=== PATIENT | male | born 1940 | race Two or more races ===

== ENCOUNTER 2020-01-26 08:47 | Inpatient (IN) | payer MEDICARE, MEDICAID ==
[~2020-01-26] VITALS: Ht 172.7 cm; Wt 83.2 kg
[2020-01-26 09:23] LABS: ABG BASE EXCESS -7.9 mmol/L (-2.0-3.0); ABG CARBOXYHEMOGLOBIN 1.8 % (0.0-1.5); ABG HCO3 19.3 mmol/L (22.0-26.0); ABG METHEMOGLOBIN 0.1 % (0.0-1.5); ABG OXYGEN CONTENT 19.4 mL/dL (15.0-23.0); ABG OXYGEN SATURATION 94.3 % (95.0-98.0); ABG OXYHEMOGLOBIN 92.5 % (94.0-100.0); ABG PCO2 28 mmHg (35-45); ABG PH 7.399 (7.35-7.450); ABG TOTAL HEMOGLOBIN 14.9 G/dL (12.0-18.0); SITE, BLOOD GAS LFT RADIAL; SOURCE, BLOOD GAS ARTERIAL; TEMPERATURE, FAHRENHEIT, BG 98.6 FAHREN (96.0-98.6)
[2020-01-26 09:24] LABS: O2 DEVICE,BLOOD GAS NON REBREATHER (ROOM AIR)
[2020-01-26 09:38] LABS: BASOPHILS % (AUTO) 0.3 % (0.0-2.0); EOSINOPHILS % (AUTO) 0 % (1.0-6.0); HEMATOCRIT 43.8 % (41-53); HEMOGLOBIN 14.2 g/dL (13.5-17.5); LYMPHOCYTES # (AUTO) 0.6 K/uL (1.0-4.8); LYMPHOCYTES % (AUTO) 2.5 % (22.0-44.0); MEAN CORPUSCULAR HEMOGLOBIN 27.6 pg (26.0-34.0); MEAN CORPUSCULAR HGB CONC 32.4 G/dL (31.0-37.0); MEAN CORPUSCULAR VOLUME 85 fL (80-100); MONOCYTES # (AUTO) 1.6 K/uL (0.1-1.0); MONOCYTES % (AUTO) 6.8 % (2.0-9.0); NEUTROPHILS # (AUTO) 20.9 K/uL (1.8-7.7); PLATELET COUNT (AUTO) 323 K/uL (150-450); RED BLOOD CELL COUNT(AUTO) 5.14 MIL/uL (4.50-5.90); RED CELL DISTRIBUTION WIDTH 14.5 % (11.5-14.5)
[2020-01-26 09:43] LABS: NEUTROPHILS % (AUTO) 90.4 % (40.0-70.0)
[2020-01-26 09:52] LABS: ANION GAP 17 mmol/L (8-16); CALCIUM, TOTAL 9.2 mg/dL (8.8-10.5); CARBON DIOXIDE 21 mmol/L (22-29); CHLORIDE 101 mmol/L (98-107); CREATININE 3.46 mg/dL (0.60-1.30); GLOMERULAR FILTR. RATE CALC 17 mL/min (>60); GLUCOSE,RANDOM 211 mg/dL (70-110); POTASSIUM 4.3 mmol/L (3.5-5.1); SODIUM SERUM 139 mmol/L (136-145); UREA NITROGEN, BLOOD 62 mg/dL (7-18)
[2020-01-26 09:57] LABS: D-DIMER 2.24 mg/L FEU (0.00-0.50); INR 1.1 (0.9-1.1); PROTHROMBIN TIME 11.5 SEC (9.4-11.6)
[2020-01-26] MEDS ORDERED: CefTRIAXone 1 GM/DEXTROSE 50 ML IV ONE (10:00)
[2020-01-26] MEDS ORDERED: AZITHROMYCIN 500 MG/NS 250 ML IV ONE (10:00)
[2020-01-26 10:02] LABS: LACTIC ACID 5.1 mmol/L (0.4-2.0)
[2020-01-26] MEDS ORDERED: ACETAMINOPHEN 325 MG TABLET PO PRN ×2 (10:30→18:15)
[2020-01-26] MEDS ORDERED: ONDANSETRON HCL 4 MG/2 ML VIAL IVP PRN ×2 (10:30→18:15)
[2020-01-26 10:33] LABS: ALANINE AMINOTRANSFERASE 36 U/L (12-78); ALBUMIN 2.5 g/dL (3.4-5.0); ALKALINE PHOSPHATASE 136 U/L (46-116); ASPARTATE AMINOTRANSFERASE 58 U/L (15-37); BILIRUBIN,TOTAL 7.3 mg/dL (0.1-1.0); CREATINE KINASE, TOTAL ONLY 78 U/L (39-308); FERRITIN 2615 ng/mL (26-388); LACTATE DEHYDROGENASE 435 U/L (85-227)
[2020-01-26 10:49] LABS: ERYTHROCYTE SEDIMENTATION RATE 68 MM/HR (0-15)
[2020-01-26] MEDS ORDERED: LORazepam 2 MG/ML VIAL IVP ONE (11:30)
[2020-01-26] MEDS ORDERED: FUROSEMIDE 40 MG/4 ML VIAL IVP ONE (12:15)
[2020-01-26 12:41] LABS: ABG A-A DIFF O2 625.7 mmHg (10-20.0); ABG BASE EXCESS -5.6 mmol/L (-2.0-3.0); ABG CARBOXYHEMOGLOBIN 1.2 % (0.0-1.5); ABG HCO3 20.2 mmol/L (22.0-26.0); ABG METHEMOGLOBIN 0.2 % (0.0-1.5); ABG OXYGEN CONTENT 17.7 mL/dL (15.0-23.0); ABG PCO2 36 mmHg (35-45); ABG PH 7.362 (7.35-7.450); ABG TOTAL HEMOGLOBIN 15.2 G/dL (12.0-18.0); PO2, ARTERIAL BG 51.9 mmHg (71.0-79.0); SOURCE, BLOOD GAS ARTERIAL; TEMPERATURE, FAHRENHEIT, BG 98.4 FAHREN (96.0-98.6)
[2020-01-26 14:53] LABS: ABG OXYGEN SATURATION 84.2 % (95.0-98.0); O2 DEVICE,BLOOD GAS NON REBREATHER (ROOM AIR); SITE, BLOOD GAS RT RADIAL
[2020-01-26] MEDS: DEXMEDETOMIDINE HCL 200 MCG in SODIUM CHLORIDE 0.9% 48 ML IV PRN ×2 (15:12→19:54)
[2020-01-26] MEDS ORDERED: HEPARIN SODIUM,PORCINE 1,000 UNITS/ML VIAL ONE (16:50)
[2020-01-26] MEDS ORDERED: ALBUMIN HUMAN 25%-12.5GM/50ML IV BOTTLE ONE (16:50)
[2020-01-26 18:15] LABS: BASOPHILS % (AUTO) 0.1 % (0.0-2.0); EOSINOPHILS % (AUTO) 0.1 % (1.0-6.0); HEMATOCRIT 40.3 % (41-53); HEMOGLOBIN 13.3 g/dL (13.5-17.5); LYMPHOCYTES # (AUTO) 0.4 K/uL (1.0-4.8); MEAN CORPUSCULAR HEMOGLOBIN 27.8 pg (26.0-34.0); MEAN CORPUSCULAR VOLUME 84 fL (80-100); MONOCYTES # (AUTO) 1.4 K/uL (0.1-1.0); MONOCYTES % (AUTO) 6.9 % (2.0-9.0); PLATELET COUNT (AUTO) 268 K/uL (150-450); RED BLOOD CELL COUNT(AUTO) 4.79 MIL/uL (4.50-5.90); RED CELL DISTRIBUTION WIDTH 14.5 % (11.5-14.5)
[2020-01-26] MEDS ORDERED: BISACODYL 10 MG RECTAL RECTAL SUPPOSITORY PR PRN (18:15)
[2020-01-26] MEDS ORDERED: IPRATROPIUM BROMIDE 0.5 MG/2.5 ML NEB SOLUTION NEB PRN (18:15)
[2020-01-26] MEDS ORDERED: HYDROCODONE/ACETAMINOPHEN 5-325 MG TABLET PO PRN (18:15)
[2020-01-26] MEDS ORDERED: ZOLPIDEM TARTRATE 5 MG TABLET PO PRN (18:15)
[2020-01-26] MEDS ORDERED: ALBUTEROL SULFATE 2.5 MG/0.5 ML NEB SOLUTION NEB PRN (18:15)
[2020-01-26] MEDS ORDERED: MAGNESIUM HYDROXIDE SUSPENSION 30 ML UDCUP PO PRN (18:15)
[2020-01-26 18:16] LABS: NEUTROPHILS % (AUTO) 90.9 % (40.0-70.0)
[2020-01-26 18:47] LABS: CALCIUM, TOTAL 8.7 mg/dL (8.8-10.5); CREATININE 3.24 mg/dL (0.60-1.30)
[2020-01-26] MEDS ORDERED: HEPARIN SODIUM 25000 UNITS/D5W 250 ML IV PRN (18:49)
[2020-01-26 18:57] LABS: D-DIMER 2.87 mg/L FEU (0.00-0.50)
[2020-01-26] MEDS ORDERED: HEPARIN SODIUM,PORCINE 5,000 UNITS/ML VIAL IVP PRN ×3 (19:00→19:30)
[2020-01-26 19:01] LABS: PLATELET MORPHOLOGY COMMENT LARGE PLTS PRESENT
[2020-01-26 19:07] LABS: INR 1.1 (0.9-1.1); PROTHROMBIN TIME 11.5 SEC (9.4-11.6)
[2020-01-26 19:20] LABS: ALBUMIN 2.1 g/dL (3.4-5.0); BILIRUBIN,TOTAL 6.1 mg/dL (0.1-1.0); THYROID STIMULATING HORMONE 0.42 uIU/mL (0.36-3.74); TOTAL PROTEIN, SERUM 6.1 g/dL (6.4-8.2)
[2020-01-26 19:29] LABS: C-REACTIVE PROTEIN QUANT 26.59 mg/dL (0.00-0.30)
[2020-01-26] MEDS ORDERED: HEPARIN SODIUM,PORCINE 5,000 UNITS/ML VIAL IVP ONE (19:30)
[2020-01-26] MEDS ORDERED: SODIUM CHLORIDE 0.9% 1,000 ML ONE (20:55)
[2020-01-26] MEDS ORDERED: NOREPINEPHRINE 4 MG/D5%-WATER 250 ML IV ONE (20:55)
[2020-01-26] MEDS ORDERED: PROPOFOL 1000 MG/ISO-OSM 100 ML IV ONE (20:56)
[2020-01-26] MEDS: DOCUSATE SODIUM 100 MG CAPSULE PO SCH (21:00)
[2020-01-26] MEDS: NOREPINEPHRINE 4 MG/D5%-WATER 250 ML IV PRN (21:59)
[2020-01-26] MEDS ORDERED: VANCOMYCIN HCL 1 GM/D5% WATER 200 ML IV PRN (22:30)
[2020-01-26] MEDS: HEPARIN SODIUM 25000 UNITS/D5W 250 ML IV PRN (22:45)
[2020-01-26] MEDS ORDERED: VANCOMYCIN HCL 1.5 GM in DEXTROSE 5%-WATER 250 ML IV ONE (23:00)
[2020-01-27] VITALS (10 sets, daily range): BP systolic 99–170; BP diastolic 32–82
[2020-01-27] MEDS ORDERED: HEPARIN SODIUM,PORCINE 5,000 UNITS/ML VIAL SQ SCH
[2020-01-27 01:15] LABS: ABG A-A DIFF O2 453.8 mmHg (10-20.0); ABG CARBOXYHEMOGLOBIN 0.5 % (0.0-1.5); ABG HCO3 20.2 mmol/L (22.0-26.0); ABG METHEMOGLOBIN 0.2 % (0.0-1.5); ABG OXYGEN CONTENT 19.2 mL/dL (15.0-23.0); ABG OXYGEN SATURATION 99.1 % (95.0-98.0); ABG OXYHEMOGLOBIN 98.4 % (94.0-100.0); ABG PCO2 35 mmHg (35-45); ABG PH 7.361 (7.35-7.450); ABG TOTAL HEMOGLOBIN 13.5 G/dL (12.0-18.0); PO2, ARTERIAL BG 225.9 mmHg (71.0-79.0); SOURCE, BLOOD GAS ARTERIAL; TEMPERATURE, FAHRENHEIT, BG 97.4 FAHREN (96.0-98.6)
[2020-01-27 01:16] LABS: O2 DEVICE,BLOOD GAS VENTILATOR (ROOM AIR); PEEP,BG 10 cm H2O; SITE, BLOOD GAS ARTERIAL LINE; VT, ABG 500 ml
[2020-01-27] MEDS ORDERED: SODIUM CHLORIDE 0.9% 250 ML IV ONE (01:23)
[2020-01-27] MEDS ORDERED: DOPamine HCL 200 MG/D5%-WATER 250 ML IV PRN (01:37)
[2020-01-27 05:30] LABS: HEMATOCRIT 37.8 % (41-53); HEMOGLOBIN 12.6 g/dL (13.5-17.5); MEAN CORPUSCULAR HEMOGLOBIN 28.2 pg (26.0-34.0); MEAN CORPUSCULAR HGB CONC 33.2 G/dL (31.0-37.0); MEAN CORPUSCULAR VOLUME 85 fL (80-100); PLATELET COUNT (AUTO) 266 K/uL (150-450); RED BLOOD CELL COUNT(AUTO) 4.46 MIL/uL (4.50-5.90); RED CELL DISTRIBUTION WIDTH 14.6 % (11.5-14.5)
[2020-01-27 05:52] LABS: D-DIMER 8.29 mg/L FEU (0.00-0.50)
[2020-01-27 06:14] LABS: CREATININE,URINE RANDOM 82.6 mg/dL (30.0-125.0)
[2020-01-27 06:28] LABS: ALBUMIN 1.9 g/dL (3.4-5.0); BILIRUBIN,TOTAL 5.8 mg/dL (0.1-1.0); CALCIUM, TOTAL 8.3 mg/dL (8.8-10.5); CREATININE 3.36 mg/dL (0.60-1.30); MAGNESIUM 2.6 mg/dL (1.80-2.40); PHOSPHORUS 5.5 mg/dL (2.5-4.9); POTASSIUM 3.7 mmol/L (3.5-5.1); TOTAL PROTEIN, SERUM 5.9 g/dL (6.4-8.2)
[2020-01-27] MEDS ORDERED: DOPamine HCL 800 MG/D5%-WATER 250 ML IV PRN (06:42)
[2020-01-27 06:48] LABS: BAND NEUTROPHILS % (MANUAL) 5 % (0-5); LYMPHOCYTES % (MANUAL) 4 % (22-44); METAMYELOCYTES % 3 % (0-0); MONOCYTES % (MANUAL) 4 % (2-9); MYELOCYTES % 1 % (0-0); SEGMENTED NEUTROPHILS % 83 % (40-70)
[2020-01-27 07:03] LABS: C-REACTIVE PROTEIN QUANT 27.46 mg/dL (0.00-0.30)
[2020-01-27 07:18] LABS: GLUCOSE,POINT OF CARE 211 MG/DL (70-110)
[2020-01-27] MEDS: PROPOFOL 1000 MG/ISO-OSM 100 ML IV PRN ×2 (07:19→14:13)
[2020-01-27] MEDS: MORPHINE SULFATE 2 MG/ML SYRINGE IVP PRN ×2 (07:20→18:36)
[2020-01-27] MEDS: DOCUSATE SODIUM 100 MG CAPSULE PO SCH ×2 (08:20→09:30)
[2020-01-27] MEDS: AZITHROMYCIN 500 MG/NS 250 ML IV SCH (10:22)
[2020-01-27] MEDS: CefTRIAXone 1 GM/DEXTROSE 50 ML IV SCH (10:22)
[2020-01-27] MEDS ORDERED: DEXTROSE 50%-WATER 25 GM/50 ML SYRINGE IVP PRN (12:15)
[2020-01-27 13:34] LABS: APPEARANCE,URINE CLOUDY (CLEAR); GLUCOSE, URINE (UA) NEGATIVE (NEGATIVE); KETONES,URINE NEGATIVE (NEGATIVE); LEUKOCYTE ESTERASE ,URINE LARGE (NEGATIVE); NITRATE,URINE NEGATIVE (NEGATIVE); OCCULT BLOOD,URINE LARGE (NEGATIVE); PROTEIN,URINE POS 1+ (NEGATIVE)
[2020-01-27 13:39] LABS: BILIRUBIN,URINE PRELIM. POSITIVE (NEGATIVE)
[2020-01-27 13:41] LABS: BACTERIA,URINE Moderate /HPF (None Seen); SQUAMOUS EPITHELIAL CELL,UR Few /LPF (None Seen)
[2020-01-27] MEDS: INSULIN LISPRO 100 UNITS/ML SQ PRN (14:57)
[2020-01-27] MEDS: HEPARIN SODIUM,PORCINE 5,000 UNITS/ML VIAL IVP PRN (17:30)
[2020-01-28] VITALS (13 sets, daily range): BP systolic 100–163; BP diastolic 32–59
[2020-01-28] MEDS: INSULIN LISPRO 100 UNITS/ML SQ PRN ×2 (00:35→12:30)
[2020-01-28] MEDS: HEPARIN SODIUM,PORCINE 5,000 UNITS/ML VIAL IVP PRN (01:11)
[2020-01-28] MEDS: PROPOFOL 1000 MG/ISO-OSM 100 ML IV PRN ×4 (01:13→14:30)
[2020-01-28 05:02] LABS: GLUCOSE,POINT OF CARE 132 MG/DL (70-110)
[2020-01-28 06:17] LABS: HEMATOCRIT 36.4 % (41-53); HEMOGLOBIN 12.7 g/dL (13.5-17.5); MEAN CORPUSCULAR HGB CONC 34.8 G/dL (31.0-37.0); MEAN CORPUSCULAR VOLUME 83 fL (80-100); PLATELET COUNT (AUTO) 309 K/uL (150-450); RED BLOOD CELL COUNT(AUTO) 4.37 MIL/uL (4.50-5.90); RED CELL DISTRIBUTION WIDTH 14.4 % (11.5-14.5)
[2020-01-28 06:29] LABS: ALBUMIN 1.7 g/dL (3.4-5.0); MAGNESIUM 2.6 mg/dL (1.80-2.40); POTASSIUM 3.7 mmol/L (3.5-5.1)
[2020-01-28 06:45] LABS: D-DIMER 3.64 mg/L FEU (0.00-0.50)
[2020-01-28 06:51] LABS: BAND NEUTROPHILS % (MANUAL) 5 % (0-5); LYMPHOCYTES % (MANUAL) 6 % (22-44); METAMYELOCYTES % 2 % (0-0); MONOCYTES % (MANUAL) 5 % (2-9); MYELOCYTES % 1 % (0-0); SEGMENTED NEUTROPHILS % 81 % (40-70)
[2020-01-28 06:57] LABS: PHOSPHORUS 6.3 mg/dL (2.5-4.9)
[2020-01-28 07:11] LABS: HEMOGLOBIN A1C 6.4 % (3.8-5.6)
[2020-01-28 07:11] LABS: GLUCOSE,POINT OF CARE 153 MG/DL (70-110)
[2020-01-28 07:51] LABS: C-REACTIVE PROTEIN QUANT 22.49 mg/dL (0.00-0.30); CALCIUM, TOTAL 7.7 mg/dL (8.8-10.5); CREATININE 3.45 mg/dL (0.60-1.30); THYROID STIMULATING HORMONE 1.63 uIU/mL (0.36-3.74); TOTAL PROTEIN, SERUM 5.8 g/dL (6.4-8.2); VANCOMYCIN,RANDOM 13.9 mcg/mL (25.0-50.0)
[2020-01-28] MEDS ORDERED: VANCOMYCIN HCL 1 GM/D5% WATER 200 ML IV ONE (08:00)
[2020-01-28 08:07] LABS: ABG A-A DIFF O2 224.9 mmHg (10-20.0); ABG BASE EXCESS -5.8 mmol/L (-2.0-3.0); ABG CARBOXYHEMOGLOBIN 0.3 % (0.0-1.5); ABG HCO3 20.2 mmol/L (22.0-26.0); ABG METHEMOGLOBIN 0.2 % (0.0-1.5); ABG OXYGEN CONTENT 18.2 mL/dL (15.0-23.0); ABG OXYGEN SATURATION 96.7 % (95.0-98.0); ABG OXYHEMOGLOBIN 96.2 % (94.0-100.0); ABG PCO2 36 mmHg (35-45); ABG PH 7.354 (7.35-7.450); ABG TOTAL HEMOGLOBIN 13.4 G/dL (12.0-18.0); PO2, ARTERIAL BG 91.1 mmHg (71.0-79.0); SOURCE, BLOOD GAS ARTERIAL; TEMPERATURE, FAHRENHEIT, BG 98.3 FAHREN (96.0-98.6)
[2020-01-28 08:09] LABS: SITE, BLOOD GAS ARTERIAL LINE
[2020-01-28 08:10] LABS: O2 DEVICE,BLOOD GAS VENTILATOR (ROOM AIR); PEEP,BG 8 cm H2O; SPONTANEOUS VT, BG 500 ml; VT, ABG 500 ml
[2020-01-28 08:37] LABS: GLUCOMETER DEV NAME(LOC) 4E.2; GLUCOSE,POINT OF CARE 144 MG/DL (70-110)
[2020-01-28 08:38] LABS: GLUCOMETER DEV NAME(LOC) 4E.2; GLUCOSE,POINT OF CARE 159 MG/DL (70-110)
[2020-01-28] MEDS ORDERED: SODIUM CHLORIDE 0.9% 250 ML IV ONE (08:40)
[2020-01-28] MEDS: DOCUSATE SODIUM 100 MG CAPSULE PO SCH ×2 (08:44→21:48)
[2020-01-28] MEDS: CefTRIAXone 1 GM/DEXTROSE 50 ML IV SCH (09:49)
[2020-01-28] MEDS: AZITHROMYCIN 500 MG/NS 250 ML IV SCH (11:30)
[2020-01-28 12:18] LABS: GLUCOMETER DEV NAME(LOC) 4E.2; GLUCOSE,POINT OF CARE 174 MG/DL (70-110)
[2020-01-28] MEDS ORDERED: ETOMIDATE 2 MG/ML 10 ML VIAL IVP ONE (16:28)
[2020-01-28] MEDS: ASPIRIN 81 MG EC TABLET PO SCH (16:38)
[2020-01-28 19:08] LABS: GLUCOSE,POINT OF CARE 148 MG/DL (70-110)
[2020-01-29] MEDS: INSULIN LISPRO 100 UNITS/ML SQ PRN ×5 (02:44→23:30)
[2020-01-29 05:33] LABS: GLUCOSE,POINT OF CARE 148 MG/DL (70-110)
[2020-01-29 05:45] LABS: HEMATOCRIT 35.6 % (41-53); HEMOGLOBIN 12.2 g/dL (13.5-17.5); MEAN CORPUSCULAR HEMOGLOBIN 28.3 pg (26.0-34.0); MEAN CORPUSCULAR HGB CONC 34.3 G/dL (31.0-37.0); MEAN CORPUSCULAR VOLUME 83 fL (80-100); PLATELET COUNT (AUTO) 320 K/uL (150-450); RED BLOOD CELL COUNT(AUTO) 4.31 MIL/uL (4.50-5.90); RED CELL DISTRIBUTION WIDTH 14.2 % (11.5-14.5)
[2020-01-29 06:15] LABS: D-DIMER 2.64 mg/L FEU (0.00-0.50)
[2020-01-29 06:50] LABS: ALBUMIN 1.6 g/dL (3.4-5.0); BILIRUBIN,TOTAL 7.2 mg/dL (0.1-1.0); C-REACTIVE PROTEIN QUANT 21.39 mg/dL (0.00-0.30); CALCIUM, TOTAL 7.8 mg/dL (8.8-10.5); CREATININE 3.29 mg/dL (0.60-1.30); MAGNESIUM 2.5 mg/dL (1.80-2.40); PHOSPHORUS 5.8 mg/dL (2.5-4.9); POTASSIUM 3.4 mmol/L (3.5-5.1); TOTAL PROTEIN, SERUM 5.9 g/dL (6.4-8.2)
[2020-01-29 07:07] LABS: BAND NEUTROPHILS % (MANUAL) 6 % (0-5); LYMPHOCYTES % (MANUAL) 5 % (22-44); METAMYELOCYTES % 3 % (0-0); MONOCYTES % (MANUAL) 8 % (2-9); SEGMENTED NEUTROPHILS % 78 % (40-70)
[2020-01-29] MEDS: HEPARIN SODIUM,PORCINE 5,000 UNITS/ML VIAL IVP PRN (08:01)
[2020-01-29] MEDS: HEPARIN SODIUM 25000 UNITS/D5W 250 ML IV PRN ×2 (08:04→23:21)
[2020-01-29] MEDS: ASPIRIN 81 MG EC TABLET PO SCH (08:05)
[2020-01-29] MEDS: DOCUSATE SODIUM 100 MG CAPSULE PO SCH ×2 (08:05→21:00)
[2020-01-29] MEDS: MORPHINE SULFATE 2 MG/ML SYRINGE IVP PRN (08:06)
[2020-01-29] MEDS: PROPOFOL 1000 MG/ISO-OSM 100 ML IV PRN ×4 (08:07→23:23)
[2020-01-29 09:12] LABS: ABG TOTAL HEMOGLOBIN 12.6 G/dL (12.0-18.0); SOURCE, BLOOD GAS ARTERIAL; TEMPERATURE, FAHRENHEIT, BG 98.6 FAHREN (96.0-98.6)
[2020-01-29 09:15] LABS: ABG A-A DIFF O2 292.3 mmHg (10-20.0); ABG BASE EXCESS -4.3 mmol/L (-2.0-3.0); ABG CARBOXYHEMOGLOBIN 0.3 % (0.0-1.5); ABG HCO3 21.2 mmol/L (22.0-26.0); ABG METHEMOGLOBIN 0.4 % (0.0-1.5); ABG OXYGEN CONTENT 17.1 mL/dL (15.0-23.0); ABG OXYGEN SATURATION 96.7 % (95.0-98.0); ABG PCO2 40 mmHg (35-45); ABG PH 7.348 (7.35-7.450); PO2, ARTERIAL BG 91.8 mmHg (71.0-79.0)
[2020-01-29 09:18] LABS: O2 DEVICE,BLOOD GAS VENTILATOR (ROOM AIR); SITE, BLOOD GAS ARTERIAL LINE; VT, ABG 500 ml
[2020-01-29 09:19] LABS: PEEP,BG 5 cm H2O
[2020-01-29] MEDS: CefTRIAXone 1 GM/DEXTROSE 50 ML IV SCH (11:07)
[2020-01-29] MEDS ORDERED: SODIUM CHLORIDE 0.9% 250 ML IV ONE (11:17)
[2020-01-29 11:27] LABS: GLUCOSE,POINT OF CARE 158 MG/DL (70-110)
[2020-01-29] MEDS ORDERED: *CLINICAL-LEVOFLOXACIN IVPB DOSING CLINICAL ONE (12:45)
[2020-01-29] MEDS ORDERED: LEVOFLOXACIN 750 MG/D5% WATER 150 ML IV ONE (13:00)
[2020-01-29 17:52] LABS: GLUCOMETER DEV NAME(LOC) 4E.2; GLUCOSE,POINT OF CARE 158 MG/DL (70-110)
[2020-01-29 20:00] VITALS: BP 146/34
[2020-01-30] VITALS: BP 182/37
[2020-01-30 01:00] LABS: GLUCOMETER DEV NAME(LOC) 4E.2; GLUCOSE,POINT OF CARE 141 MG/DL (70-110)
[2020-01-30] MEDS: PROPOFOL 1000 MG/ISO-OSM 100 ML IV PRN ×6 (03:25→23:19)
[2020-01-30 04:00] VITALS: BP 161/44
[2020-01-30 05:51] LABS: HEMATOCRIT 34.6 % (41-53); HEMOGLOBIN 12.1 g/dL (13.5-17.5); MEAN CORPUSCULAR HEMOGLOBIN 28.5 pg (26.0-34.0); MEAN CORPUSCULAR HGB CONC 34.9 G/dL (31.0-37.0); MEAN CORPUSCULAR VOLUME 82 fL (80-100); PLATELET COUNT (AUTO) 323 K/uL (150-450); RED BLOOD CELL COUNT(AUTO) 4.23 MIL/uL (4.50-5.90); RED CELL DISTRIBUTION WIDTH 14.7 % (11.5-14.5)
[2020-01-30 06:19] LABS: GLUCOSE,POINT OF CARE 162 MG/DL (70-110)
[2020-01-30 06:33] LABS: D-DIMER 2.19 mg/L FEU (0.00-0.50)
[2020-01-30 06:54] LABS: ALBUMIN 1.4 g/dL (3.4-5.0); BILIRUBIN,TOTAL 6.7 mg/dL (0.1-1.0); CALCIUM, TOTAL 7.9 mg/dL (8.8-10.5); CREATININE 3.68 mg/dL (0.60-1.30); TOTAL PROTEIN, SERUM 6.2 g/dL (6.4-8.2)
[2020-01-30 07:03] LABS: GLUCOMETER DEV NAME(LOC) 4E.2; GLUCOSE,POINT OF CARE 140 MG/DL (70-110)
[2020-01-30 07:32] LABS: C-REACTIVE PROTEIN QUANT 28.09 mg/dL (0.00-0.30)
[2020-01-30 08:35] LABS: ABG BASE EXCESS -3.8 mmol/L (-2.0-3.0); ABG CARBOXYHEMOGLOBIN 0.3 % (0.0-1.5); ABG HCO3 21.4 mmol/L (22.0-26.0); ABG METHEMOGLOBIN 0.3 % (0.0-1.5); ABG OXYGEN CONTENT 16.3 mL/dL (15.0-23.0); ABG OXYGEN SATURATION 95.3 % (95.0-98.0); ABG OXYHEMOGLOBIN 94.7 % (94.0-100.0); ABG PCO2 44 mmHg (35-45); ABG PH 7.326 (7.35-7.450); ABG TOTAL HEMOGLOBIN 12.2 G/dL (12.0-18.0); PO2, ARTERIAL BG 80.8 mmHg (71.0-79.0); SOURCE, BLOOD GAS ARTERIAL; TEMPERATURE, FAHRENHEIT, BG 98.6 FAHREN (96.0-98.6)
[2020-01-30] MEDS: DOCUSATE SODIUM 100 MG CAPSULE PO SCH ×2 (08:37→19:56)
[2020-01-30] MEDS: ASPIRIN 81 MG EC TABLET PO SCH (08:37)
[2020-01-30 08:41] LABS: O2 DEVICE,BLOOD GAS VENTILATOR (ROOM AIR); SITE, BLOOD GAS ARTERIAL LINE; VT, ABG 500 ml
[2020-01-30 08:42] LABS: PEEP,BG 5 cm H2O
[2020-01-30] MEDS ORDERED: VANCOMYCIN HCL 1 GM/D5% WATER 200 ML IV ONE (10:00)
[2020-01-30 10:49] LABS: BAND NEUTROPHILS % (MANUAL) 7 % (0-5); LYMPHOCYTES % (MANUAL) 6 % (22-44); METAMYELOCYTES % 1 % (0-0); MONOCYTES % (MANUAL) 2 % (2-9); SEGMENTED NEUTROPHILS % 84 % (40-70)
[2020-01-30] MEDS: CefTRIAXone 1 GM/DEXTROSE 50 ML IV SCH (10:50)
[2020-01-30] MEDS: METOPROLOL SUCCINATE 25 MG ER TABLET PO SCH (10:52)
[2020-01-30] MEDS: INSULIN LISPRO 100 UNITS/ML SQ PRN ×3 (11:57→23:43)
[2020-01-30] MEDS ORDERED: CefTRIAXone 1 GM/DEXTROSE 50 ML IV ONE (12:00)
[2020-01-30] MEDS: HEPARIN SODIUM 25000 UNITS/D5W 250 ML IV PRN (12:11)
[2020-01-30] MEDS ORDERED: HYDROXYCHLOROQUINE SULFATE 200 MG TABLET PO ONE (15:15)
[2020-01-30 17:31] LABS: GLUCOSE,POINT OF CARE 172 MG/DL (70-110)
[2020-01-30 17:54] LABS: GLUCOSE,POINT OF CARE 150 MG/DL (70-110)
[2020-01-30] MEDS: ZINC SULFATE 220 MG CAPSULE PO SCH (19:56)
[2020-01-30 20:00] VITALS: BP 152/40
[2020-01-30] MEDS ORDERED: SODIUM CHLORIDE 0.9% 250 ML IV ONE (22:48)
[2020-01-31] VITALS (12 sets, daily range): BP systolic 107–144; BP diastolic 28–59
[2020-01-31] MEDS: PROPOFOL 1000 MG/ISO-OSM 100 ML IV PRN ×4 (04:51→20:16)
[2020-01-31] MEDS: INSULIN LISPRO 100 UNITS/ML SQ PRN ×3 (05:20→16:28)
[2020-01-31 05:47] LABS: GLUCOMETER DEV NAME(LOC) 4E.2; GLUCOSE,POINT OF CARE 149 MG/DL (70-110)
[2020-01-31] MEDS ORDERED: HYDROXYCHLOROQUINE SULFATE 200 MG TABLET PO ONE (06:00)
[2020-01-31 06:17] LABS: GLUCOSE,POINT OF CARE 152 MG/DL (70-110)
[2020-01-31 06:24] LABS: HEMATOCRIT 33.4 % (41-53); HEMOGLOBIN 11.5 g/dL (13.5-17.5); MEAN CORPUSCULAR HEMOGLOBIN 28.1 pg (26.0-34.0); MEAN CORPUSCULAR HGB CONC 34.3 G/dL (31.0-37.0); MEAN CORPUSCULAR VOLUME 82 fL (80-100); PLATELET COUNT (AUTO) 351 K/uL (150-450); RED BLOOD CELL COUNT(AUTO) 4.08 MIL/uL (4.50-5.90); RED CELL DISTRIBUTION WIDTH 14.5 % (11.5-14.5)
[2020-01-31 07:25] LABS: ALBUMIN 1.3 g/dL (3.4-5.0); BILIRUBIN,TOTAL 7.2 mg/dL (0.1-1.0); CALCIUM, TOTAL 8.1 mg/dL (8.8-10.5); CREATININE 4.46 mg/dL (0.60-1.30); POTASSIUM 4.2 mmol/L (3.5-5.1); TOTAL PROTEIN, SERUM 6.4 g/dL (6.4-8.2)
[2020-01-31 07:41] LABS: BAND NEUTROPHILS % (MANUAL) 7 % (0-5); LYMPHOCYTES % (MANUAL) 5 % (22-44); METAMYELOCYTES % 1 % (0-0); MONOCYTES % (MANUAL) 4 % (2-9); SEGMENTED NEUTROPHILS % 83 % (40-70)
[2020-01-31 07:51] LABS: C-REACTIVE PROTEIN QUANT 31.03 mg/dL (0.00-0.30)
[2020-01-31] MEDS: ASPIRIN 81 MG EC TABLET PO SCH (08:14)
[2020-01-31] MEDS: ZINC SULFATE 220 MG CAPSULE PO SCH ×2 (08:14→21:00)
[2020-01-31] MEDS: DOCUSATE SODIUM 100 MG CAPSULE PO SCH ×2 (08:15→21:00)
[2020-01-31] MEDS: METOPROLOL SUCCINATE 25 MG ER TABLET PO SCH (08:15)
[2020-01-31 10:39] LABS: CALCIUM, TOTAL 7.4 mg/dL (8.8-10.5); CREATININE 4.54 mg/dL (0.60-1.30); POTASSIUM 4.6 mmol/L (3.5-5.1)
[2020-01-31] MEDS ORDERED: HEPARIN SODIUM,PORCINE 1,000 UNITS/ML VIAL ONE (11:24)
[2020-01-31] MEDS: LEVOFLOXACIN 500 MG/D5% WATER 100 ML IV SCH (12:15)
[2020-01-31] MEDS: CefTRIAXone SODIUM 2 GM in DEXTROSE 5%-WATER 50 ML IV SCH (12:15)
[2020-01-31] MEDS: HEPARIN SODIUM,PORCINE 5,000 UNITS/ML VIAL IVP PRN (12:45)
[2020-01-31] MEDS: HEPARIN SODIUM 25000 UNITS/D5W 250 ML IV PRN ×2 (12:46→16:10)
[2020-01-31 13:30] LABS: GLUCOSE,POINT OF CARE 167 MG/DL (70-110)
[2020-01-31] MEDS: MetroNIDAZOLE 500 MG/NACL 100 ML IV SCH (16:09)
[2020-01-31] MEDS ORDERED: SODIUM CHLORIDE 0.9% 100 ML ONE (16:25)
[2020-01-31 17:07] LABS: ABG CARBOXYHEMOGLOBIN 0.3 % (0.0-1.5); ABG METHEMOGLOBIN 0.3 % (0.0-1.5); SOURCE, BLOOD GAS ARTERIAL; TEMPERATURE, FAHRENHEIT, BG 98.6 FAHREN (96.0-98.6)
[2020-01-31 17:10] LABS: ABG A-A DIFF O2 419.9 mmHg (10-20.0); ABG BASE EXCESS -3.2 mmol/L (-2.0-3.0); ABG HCO3 21.6 mmol/L (22.0-26.0); ABG OXYGEN CONTENT 14.1 mL/dL (15.0-23.0); ABG OXYGEN SATURATION 96.6 % (95.0-98.0); ABG PCO2 51 mmHg (35-45); ABG PH 7.284 (7.35-7.450); ABG TOTAL HEMOGLOBIN 10.3 G/dL (12.0-18.0); PO2, ARTERIAL BG 97.4 mmHg (71.0-79.0)
[2020-01-31 17:11] LABS: O2 DEVICE,BLOOD GAS VENTILATOR (ROOM AIR); PEEP,BG 5 cm H2O; SITE, BLOOD GAS A-LINE; VT, ABG 500 ml
[2020-01-31 18:08] LABS: GLUCOMETER DEV NAME(LOC) 4E.2; GLUCOSE,POINT OF CARE 159 MG/DL (70-110)
[2020-02-01] VITALS (8 sets, daily range): BP systolic 96–123; BP diastolic 30–53
[2020-02-01] MEDS: MetroNIDAZOLE 500 MG/NACL 100 ML IV SCH ×4 (00:30→23:06)
[2020-02-01] MEDS: PROPOFOL 1000 MG/ISO-OSM 100 ML IV PRN ×4 (00:31→18:49)
[2020-02-01] MEDS: INSULIN LISPRO 100 UNITS/ML SQ PRN ×3 (00:32→13:00)
[2020-02-01] MEDS ORDERED: CISATRACURIUM BESYLATE 20 MG in DEXTROSE 5%-WATER 98 ML IV PRN (02:00)
[2020-02-01] MEDS: NOREPINEPHRINE 4 MG/D5%-WATER 250 ML IV PRN ×3 (04:00→14:55)
[2020-02-01] MEDS: CISATRACURIUM BESYLATE 50 MG in DEXTROSE 5%-WATER 245 ML IV PRN ×4 (04:02→19:27)
[2020-02-01] MEDS ORDERED: SODIUM CHLORIDE 0.9% 2,000 ML ONE (04:32)
[2020-02-01 04:34] LABS: HEMATOCRIT 28.1 % (41-53); HEMOGLOBIN 9.4 g/dL (13.5-17.5); MEAN CORPUSCULAR HEMOGLOBIN 27.5 pg (26.0-34.0); MEAN CORPUSCULAR HGB CONC 33.4 G/dL (31.0-37.0); MEAN CORPUSCULAR VOLUME 82 fL (80-100); PLATELET COUNT (AUTO) 356 K/uL (150-450); RED BLOOD CELL COUNT(AUTO) 3.41 MIL/uL (4.50-5.90); RED CELL DISTRIBUTION WIDTH 15.1 % (11.5-14.5)
[2020-02-01 04:40] LABS: D-DIMER 1.87 mg/L FEU (0.00-0.50)
[2020-02-01 05:03] LABS: C-REACTIVE PROTEIN QUANT 28.92 mg/dL (0.00-0.30)
[2020-02-01 05:28] LABS: POTASSIUM 5.4 mmol/L (3.5-5.1)
[2020-02-01 05:29] LABS: BILIRUBIN,TOTAL 7.4 mg/dL (0.1-1.0); CALCIUM, TOTAL 7.4 mg/dL (8.8-10.5); CREATININE 3.97 mg/dL (0.60-1.30); MAGNESIUM 2.4 mg/dL (1.80-2.40)
[2020-02-01 05:30] LABS: ALBUMIN 1.4 g/dL (3.4-5.0); TOTAL PROTEIN, SERUM 6.2 g/dL (6.4-8.2)
[2020-02-01 05:35] LABS: BAND NEUTROPHILS % (MANUAL) 5 % (0-5); EOSINOPHILS % (MANUAL) 1 % (1-6); LYMPHOCYTES % (MANUAL) 5 % (22-44); METAMYELOCYTES % 1 % (0-0); MONOCYTES % (MANUAL) 6 % (2-9); SEGMENTED NEUTROPHILS % 82 % (40-70)
[2020-02-01] MEDS: HEPARIN SODIUM 25000 UNITS/D5W 250 ML IV PRN (06:38)
[2020-02-01 08:36] LABS: GLUCOMETER DEV NAME(LOC) 4E.2; GLUCOSE,POINT OF CARE 159 MG/DL (70-110)
[2020-02-01] MEDS: METOPROLOL SUCCINATE 25 MG ER TABLET PO SCH (09:29)
[2020-02-01] MEDS: ASPIRIN 81 MG EC TABLET PO SCH (09:29)
[2020-02-01] MEDS: DOCUSATE SODIUM 100 MG CAPSULE PO SCH ×2 (09:29→23:00)
[2020-02-01] MEDS: ZINC SULFATE 220 MG CAPSULE PO SCH ×2 (09:30→23:00)
[2020-02-01] MEDS: CefTRIAXone SODIUM 2 GM in DEXTROSE 5%-WATER 50 ML IV SCH (12:59)
[2020-02-01] MEDS: DEXAMETHASONE SOD PHOS 4 MG/ML VIAL IVP SCH ×3 (14:55→23:07)
[2020-02-01] MEDS ORDERED: DAPTOMYCIN 450 MG in SODIUM CHLORIDE 0.9% 50 ML IV SCH (16:00)
[2020-02-01 17:11] LABS: BILIRUBIN,DIRECT 6.2 mg/dL (0.00-0.20)
[2020-02-01 17:47] LABS: GLUCOSE,POINT OF CARE 153 MG/DL (70-110)
[2020-02-01] MEDS ORDERED: SODIUM CHLORIDE 0.9% 250 ML IV ONE (19:26)
[2020-02-01 19:32] LABS: GLUCOSE,POINT OF CARE 161 MG/DL (70-110)
[2020-02-01 19:32] LABS: GLUCOSE,POINT OF CARE 138 MG/DL (70-110)
[2020-02-02] VITALS: BP 141/35
[2020-02-02] MEDS ORDERED: SODIUM CHLORIDE 0.9% 250 ML IV ONE (00:53)
[2020-02-02] MEDS: PROPOFOL 1000 MG/ISO-OSM 100 ML IV PRN ×4 (01:00→21:11)
[2020-02-02] MEDS: HEPARIN SODIUM 25000 UNITS/D5W 250 ML IV PRN ×2 (01:01→12:06)
[2020-02-02] MEDS: INSULIN LISPRO 100 UNITS/ML SQ PRN ×2 (01:03→06:10)
[2020-02-02] MEDS: CISATRACURIUM BESYLATE 50 MG in DEXTROSE 5%-WATER 245 ML IV PRN (03:12)
[2020-02-02 04:00] VITALS: BP 115/33
[2020-02-02 05:56] LABS: HEMATOCRIT 26.2 % (41-53); HEMOGLOBIN 8.7 g/dL (13.5-17.5); MEAN CORPUSCULAR HEMOGLOBIN 27.5 pg (26.0-34.0); MEAN CORPUSCULAR HGB CONC 33.1 G/dL (31.0-37.0); MEAN CORPUSCULAR VOLUME 83 fL (80-100); PLATELET COUNT (AUTO) 356 K/uL (150-450); RED BLOOD CELL COUNT(AUTO) 3.16 MIL/uL (4.50-5.90); RED CELL DISTRIBUTION WIDTH 15.1 % (11.5-14.5)
[2020-02-02] MEDS: DEXAMETHASONE SOD PHOS 4 MG/ML VIAL IVP SCH ×3 (06:10→17:25)
[2020-02-02 06:19] LABS: D-DIMER 1.5 mg/L FEU (0.00-0.50)
[2020-02-02 06:47] LABS: ALBUMIN 1.3 g/dL (3.4-5.0); BILIRUBIN,TOTAL 6.5 mg/dL (0.1-1.0); C-REACTIVE PROTEIN QUANT 23.88 mg/dL (0.00-0.30); CREATININE 3.42 mg/dL (0.60-1.30); MAGNESIUM 2.2 mg/dL (1.80-2.40); POTASSIUM 5.8 mmol/L (3.5-5.1)
[2020-02-02 06:59] LABS: GLUCOMETER DEV NAME(LOC) 4E.2; GLUCOSE,POINT OF CARE 179 MG/DL (70-110)
[2020-02-02 07:01] LABS: GLUCOSE,POINT OF CARE 173 MG/DL (70-110)
[2020-02-02 07:03] LABS: BAND NEUTROPHILS % (MANUAL) 7 % (0-5); LYMPHOCYTES % (MANUAL) 10 % (22-44); METAMYELOCYTES % 1 % (0-0); MONOCYTES % (MANUAL) 5 % (2-9); PLATELET MORPHOLOGY COMMENT LARGE PLTS PRESENT; SEGMENTED NEUTROPHILS % 77 % (40-70); WBC MORPHOLOGY TOXIC GRANULATION
[2020-02-02 07:06] LABS: PHOSPHORUS 10.2 mg/dL (2.5-4.9)
[2020-02-02] MEDS: NOREPINEPHRINE 4 MG/D5%-WATER 250 ML IV PRN ×3 (07:19→17:25)
[2020-02-02 08:00] VITALS: BP 115/42
[2020-02-02 08:19] LABS: ABG CARBOXYHEMOGLOBIN 0.3 % (0.0-1.5); SOURCE, BLOOD GAS ARTERIAL; TEMPERATURE, FAHRENHEIT, BG 98.6 FAHREN (96.0-98.6)
[2020-02-02 08:22] LABS: ABG A-A DIFF O2 340.2 mmHg (10-20.0); ABG BASE EXCESS -9.3 mmol/L (-2.0-3.0); ABG HCO3 17.1 mmol/L (22.0-26.0); ABG METHEMOGLOBIN 0.6 % (0.0-1.5); ABG OXYGEN CONTENT 12.9 mL/dL (15.0-23.0); ABG OXYGEN SATURATION 96.5 % (95.0-98.0); ABG OXYHEMOGLOBIN 95.6 % (94.0-100.0); ABG PCO2 55 mmHg (35-45); ABG TOTAL HEMOGLOBIN 9.5 G/dL (12.0-18.0); PO2, ARTERIAL BG 99.5 mmHg (71.0-79.0)
[2020-02-02 08:24] LABS: ABG PH 7.162 (7.35-7.450); O2 DEVICE,BLOOD GAS VENTILATOR (ROOM AIR); SITE, BLOOD GAS ARTERIAL LINE; VT, ABG 500 ml
[2020-02-02 08:25] LABS: PEEP,BG 12 cm H2O
[2020-02-02] MEDS: MetroNIDAZOLE 500 MG/NACL 100 ML IV SCH ×2 (08:29→15:38)
[2020-02-02] MEDS: ASPIRIN 81 MG EC TABLET PO SCH (08:30)
[2020-02-02] MEDS: DOCUSATE SODIUM 100 MG CAPSULE PO SCH ×2 (08:30→21:07)
[2020-02-02] MEDS: METOPROLOL SUCCINATE 25 MG ER TABLET PO SCH (08:30)
[2020-02-02] MEDS: ZINC SULFATE 220 MG CAPSULE PO SCH ×2 (08:30→21:06)
[2020-02-02] MEDS ORDERED: SODIUM BICARBONATE [ADULT] 8.4% 50 MEQ/50 ML SYRINGE IVP ONE (08:45)
[2020-02-02 09:15] LABS: LEGIONELLA PNEUMO AG URINE Negative (Negative); ORGANISM ID Not indicated.; S PNEUMO SOURCE Urine; STREP PNEUMONIAE AG URINE Negative (Negative); STREP.PNEUMO BODY FLUID CULT. Not indicated.
[2020-02-02] MEDS: CefTRIAXone SODIUM 2 GM in DEXTROSE 5%-WATER 50 ML IV SCH (11:04)
[2020-02-02] MEDS: LEVOFLOXACIN 500 MG/D5% WATER 100 ML IV SCH (11:05)
[2020-02-02] MEDS ORDERED: POTASSIUM CHLORIDE 15 MEQ in NXSTAGE RFP-402 K0/CA3 5,000 ML IRRIG PRN (11:30)
[2020-02-02] MEDS ORDERED: SODIUM CHLORIDE 0.9% 2,000 ML ONE (11:42)
[2020-02-02 12:00] VITALS: BP 113/43
[2020-02-02 13:33] LABS: GLUCOSE,POINT OF CARE 178 MG/DL (70-110)
[2020-02-02 16:00] VITALS: BP 124/54
[2020-02-02 18:21] LABS: GLUCOMETER DEV NAME(LOC) 4E.2; GLUCOSE,POINT OF CARE 157 MG/DL (70-110)
[2020-02-02 20:00] VITALS: BP 155/34
[2020-02-03] VITALS (8 sets, daily range): BP systolic 115–164; BP diastolic 29–65
[2020-02-03] MEDS: MetroNIDAZOLE 500 MG/NACL 100 ML IV SCH ×3 (01:02→16:38)
[2020-02-03] MEDS: INSULIN LISPRO 100 UNITS/ML SQ PRN ×3 (01:03→11:42)
[2020-02-03] MEDS: DEXAMETHASONE SOD PHOS 4 MG/ML VIAL IVP SCH ×4 (01:05→17:29)
[2020-02-03] MEDS: PROPOFOL 1000 MG/ISO-OSM 100 ML IV PRN ×6 (01:19→21:57)
[2020-02-03 05:17] LABS: HEMATOCRIT 23.5 % (41-53)
[2020-02-03 05:24] LABS: HEMOGLOBIN 8.1 g/dL (13.5-17.5); MEAN CORPUSCULAR HEMOGLOBIN 28.1 pg (26.0-34.0); MEAN CORPUSCULAR HGB CONC 34.4 G/dL (31.0-37.0); MEAN CORPUSCULAR VOLUME 82 fL (80-100); PLATELET COUNT (AUTO) 364 K/uL (150-450); RED BLOOD CELL COUNT(AUTO) 2.88 MIL/uL (4.50-5.90); RED CELL DISTRIBUTION WIDTH 14.9 % (11.5-14.5)
[2020-02-03 05:31] LABS: D-DIMER 1.33 mg/L FEU (0.00-0.50)
[2020-02-03 06:04] LABS: ALBUMIN 1.2 g/dL (3.4-5.0); C-REACTIVE PROTEIN QUANT 12.59 mg/dL (0.00-0.30); CALCIUM, TOTAL 6.3 mg/dL (8.8-10.5); CREATININE 3.84 mg/dL (0.60-1.30); POTASSIUM 5.5 mmol/L (3.5-5.1); TOTAL PROTEIN, SERUM 5.5 g/dL (6.4-8.2)
[2020-02-03 06:45] LABS: GLUCOMETER DEV NAME(LOC) 4E.2; GLUCOSE,POINT OF CARE 194 MG/DL (70-110)
[2020-02-03 06:48] LABS: GLUCOSE,POINT OF CARE 153 MG/DL (70-110)
[2020-02-03] MEDS: ZINC SULFATE 220 MG CAPSULE PO SCH ×2 (08:37→21:55)
[2020-02-03] MEDS: ASPIRIN 81 MG EC TABLET PO SCH (08:37)
[2020-02-03] MEDS: DOCUSATE SODIUM 100 MG CAPSULE PO SCH ×2 (08:37→22:02)
[2020-02-03] MEDS: METOPROLOL SUCCINATE 25 MG ER TABLET PO SCH (08:38)
[2020-02-03 08:51] LABS: BAND NEUTROPHILS % (MANUAL) 3 % (0-5); LYMPHOCYTES % (MANUAL) 3 % (22-44); METAMYELOCYTES % 1 % (0-0); MONOCYTES % (MANUAL) 1 % (2-9); MYELOCYTES % 1 % (0-0); REACTIVE LYMPHOCYTES 1 % (0-0); SEGMENTED NEUTROPHILS % 90 % (40-70)
[2020-02-03] MEDS: PANTOPRAZOLE SODIUM 40 MG/VIAL IVP SCH (09:45)
[2020-02-03] MEDS: VITAMIN B COMP/VIT C/FOLIC ACID CAPSULE PO SCH (09:45)
[2020-02-03] MEDS: HEPARIN SODIUM 25000 UNITS/D5W 250 ML IV PRN (09:45)
[2020-02-03] MEDS ORDERED: SODIUM CHLORIDE 0.9% IV SCH (11:00)
[2020-02-03] MEDS ORDERED: DAPTOMYCIN IV SCH (11:00)
[2020-02-03] MEDS ORDERED: SODIUM CHLORIDE 0.9% 2,000 ML ONE (11:06)
[2020-02-03] MEDS: CefTRIAXone SODIUM 2 GM in DEXTROSE 5%-WATER 50 ML IV SCH (11:43)
[2020-02-03 12:06] LABS: ABG A-A DIFF O2 207.9 mmHg (10-20.0); ABG BASE EXCESS -10.3 mmol/L (-2.0-3.0); ABG CARBOXYHEMOGLOBIN 0.8 % (0.0-1.5); ABG HCO3 16.6 mmol/L (22.0-26.0); ABG METHEMOGLOBIN 0.1 % (0.0-1.5); ABG OXYGEN CONTENT 10.8 mL/dL (15.0-23.0); ABG OXYGEN SATURATION 92.1 % (95.0-98.0); ABG OXYHEMOGLOBIN 91.3 % (94.0-100.0); ABG PCO2 38 mmHg (35-45); ABG PH 7.261 (7.35-7.450); ABG TOTAL HEMOGLOBIN 8.3 G/dL (12.0-18.0); SOURCE, BLOOD GAS ARTERIAL; TEMPERATURE, FAHRENHEIT, BG 97.8 FAHREN (96.0-98.6)
[2020-02-03 12:11] LABS: O2 DEVICE,BLOOD GAS VENTILATOR (ROOM AIR); SITE, BLOOD GAS ARTERIAL LINE
[2020-02-03 12:12] LABS: PEEP,BG 8 cm H2O; VT, ABG 500 ml
[2020-02-03 12:37] LABS: GLUCOMETER DEV NAME(LOC) 4E.2; GLUCOSE,POINT OF CARE 149 MG/DL (70-110)
[2020-02-03] MEDS ORDERED: ALBUMIN HUMAN 25%-12.5GM/50ML IV BOTTLE IV ONE (18:10)
[2020-02-03] MEDS ORDERED: HEPARIN SODIUM,PORCINE 1,000 UNITS/ML VIAL IVP ONE (18:10)
[2020-02-03 19:16] LABS: GLUCOSE,POINT OF CARE 128 MG/DL (70-110)
[2020-02-04] VITALS (8 sets, daily range): BP systolic 110–188; BP diastolic 34–70
[2020-02-04] MEDS: DEXAMETHASONE SOD PHOS 4 MG/ML VIAL IVP SCH ×5 (00:34→23:16)
[2020-02-04] MEDS: MetroNIDAZOLE 500 MG/NACL 100 ML IV SCH ×4 (00:34→23:16)
[2020-02-04] MEDS: INSULIN LISPRO 100 UNITS/ML SQ PRN ×4 (00:36→23:47)
[2020-02-04 00:41] LABS: GLUCOMETER DEV NAME(LOC) 4E.2; GLUCOSE,POINT OF CARE 156 MG/DL (70-110)
[2020-02-04] MEDS: PROPOFOL 1000 MG/ISO-OSM 100 ML IV PRN ×4 (01:33→22:10)
[2020-02-04 05:50] LABS: HEMATOCRIT 24.1 % (41-53); MEAN CORPUSCULAR HEMOGLOBIN 27.5 pg (26.0-34.0); MEAN CORPUSCULAR VOLUME 83 fL (80-100); PLATELET COUNT (AUTO) 384 K/uL (150-450); RED CELL DISTRIBUTION WIDTH 14.9 % (11.5-14.5)
[2020-02-04 06:49] LABS: ALBUMIN 1.4 g/dL (3.4-5.0); BILIRUBIN,TOTAL 3.9 mg/dL (0.1-1.0); C-REACTIVE PROTEIN QUANT 5.24 mg/dL (0.00-0.30); CALCIUM, TOTAL 6.9 mg/dL (8.8-10.5); CREATININE 2.12 mg/dL (0.60-1.30); POTASSIUM 3.9 mmol/L (3.5-5.1); TOTAL PROTEIN, SERUM 5.3 g/dL (6.4-8.2)
[2020-02-04 06:55] LABS: GLUCOSE,POINT OF CARE 163 MG/DL (70-110)
[2020-02-04] MEDS: ZINC SULFATE 220 MG CAPSULE PO SCH ×2 (08:14→20:17)
[2020-02-04] MEDS: VITAMIN B COMP/VIT C/FOLIC ACID CAPSULE PO SCH (08:14)
[2020-02-04] MEDS: PANTOPRAZOLE SODIUM 40 MG/VIAL IVP SCH (08:14)
[2020-02-04] MEDS: AMINO ACIDS/PROTEIN HYDROLYS 30 ML TUBE PO SCH ×3 (08:14→15:25)
[2020-02-04] MEDS: METOPROLOL SUCCINATE 25 MG ER TABLET PO SCH (08:14)
[2020-02-04] MEDS: ASPIRIN 81 MG EC TABLET PO SCH (08:15)
[2020-02-04] MEDS: DOCUSATE SODIUM 100 MG CAPSULE PO SCH ×2 (08:15→20:15)
[2020-02-04 08:34] LABS: ABG A-A DIFF O2 249.7 mmHg (10-20.0); ABG BASE EXCESS -7.8 mmol/L (-2.0-3.0); ABG CARBOXYHEMOGLOBIN 0.3 % (0.0-1.5); ABG HCO3 18.7 mmol/L (22.0-26.0); ABG METHEMOGLOBIN 0.3 % (0.0-1.5); ABG OXYGEN CONTENT 14.5 mL/dL (15.0-23.0); ABG OXYGEN SATURATION 90.7 % (95.0-98.0); ABG OXYHEMOGLOBIN 90.2 % (94.0-100.0); ABG PCO2 35 mmHg (35-45); ABG PH 7.334 (7.35-7.450); ABG TOTAL HEMOGLOBIN 11.4 G/dL (12.0-18.0); PO2, ARTERIAL BG 67.7 mmHg (71.0-79.0); SOURCE, BLOOD GAS ARTERIAL; TEMPERATURE, FAHRENHEIT, BG 98.6 FAHREN (96.0-98.6)
[2020-02-04 08:37] LABS: O2 DEVICE,BLOOD GAS VENTILATOR (ROOM AIR); SITE, BLOOD GAS ARTERIAL LINE
[2020-02-04 08:38] LABS: PEEP,BG 5 cm H2O; SPONTANEOUS VT, BG 705 ml; VT, ABG 500 ml
[2020-02-04 09:55] LABS: BAND NEUTROPHILS % (MANUAL) 4 % (0-5); LYMPHOCYTES % (MANUAL) 6 % (22-44); METAMYELOCYTES % 1 % (0-0); MONOCYTES % (MANUAL) 2 % (2-9); MYELOCYTES % 1 % (0-0); REACTIVE LYMPHOCYTES 1 % (0-0); SEGMENTED NEUTROPHILS % 85 % (40-70)
[2020-02-04 09:56] LABS: PLATELET MORPHOLOGY COMMENT LARGE PLTS PRESENT; WBC MORPHOLOGY TOXIC GRANULATION
[2020-02-04] MEDS: CefTRIAXone SODIUM 2 GM in DEXTROSE 5%-WATER 50 ML IV SCH (11:46)
[2020-02-04] MEDS: LEVOFLOXACIN 500 MG/D5% WATER 100 ML IV SCH (11:46)
[2020-02-04 12:22] LABS: GLUCOSE,POINT OF CARE 152 MG/DL (70-110)
[2020-02-04] MEDS: METOPROLOL TARTRATE 25 MG TABLET PO SCH ×2 (15:26→20:17)
[2020-02-04 17:50] LABS: GLUCOSE,POINT OF CARE 161 MG/DL (70-110)
[2020-02-04] MEDS ORDERED: HEPARIN SODIUM,PORCINE 1,000 UNITS/ML VIAL ONE (19:33)
[2020-02-05] VITALS: BP 124/57
[2020-02-05] MEDS ORDERED: SODIUM CHLORIDE 0.9% 250 ML IV ONE ×2 (02:08→20:17)
[2020-02-05] MEDS: PROPOFOL 1000 MG/ISO-OSM 100 ML IV PRN ×3 (03:25→21:59)
[2020-02-05 04:00] VITALS: BP 142/68
[2020-02-05 05:14] LABS: GLUCOSE,POINT OF CARE 146 MG/DL (70-110)
[2020-02-05] MEDS: DEXAMETHASONE SOD PHOS 4 MG/ML VIAL IVP SCH ×4 (05:15→23:20)
[2020-02-05] MEDS: INSULIN LISPRO 100 UNITS/ML SQ PRN ×4 (05:16→23:40)
[2020-02-05 05:42] LABS: HEMATOCRIT 24.2 % (41-53); HEMOGLOBIN 8.1 g/dL (13.5-17.5); MEAN CORPUSCULAR HEMOGLOBIN 28.3 pg (26.0-34.0); MEAN CORPUSCULAR HGB CONC 33.4 G/dL (31.0-37.0); MEAN CORPUSCULAR VOLUME 85 fL (80-100); PLATELET COUNT (AUTO) 461 K/uL (150-450); RED BLOOD CELL COUNT(AUTO) 2.85 MIL/uL (4.50-5.90); RED CELL DISTRIBUTION WIDTH 15.4 % (11.5-14.5)
[2020-02-05 06:37] LABS: ALBUMIN 1.5 g/dL (3.4-5.0); BILIRUBIN,TOTAL 2.5 mg/dL (0.1-1.0); C-REACTIVE PROTEIN QUANT 3.39 mg/dL (0.00-0.30); CALCIUM, TOTAL 6.6 mg/dL (8.8-10.5); CREATININE 3.45 mg/dL (0.60-1.30); POTASSIUM 4.3 mmol/L (3.5-5.1); TOTAL PROTEIN, SERUM 5.5 g/dL (6.4-8.2)
[2020-02-05] MEDS: MetroNIDAZOLE 500 MG/NACL 100 ML IV SCH ×3 (07:26→23:20)
[2020-02-05] MEDS: AMINO ACIDS/PROTEIN HYDROLYS 30 ML TUBE PO SCH ×3 (07:26→17:45)
[2020-02-05] MEDS: PANTOPRAZOLE SODIUM 40 MG/VIAL IVP SCH (07:26)
[2020-02-05] MEDS: ASPIRIN 81 MG EC TABLET PO SCH (07:26)
[2020-02-05] MEDS: VITAMIN B COMP/VIT C/FOLIC ACID CAPSULE PO SCH (07:26)
[2020-02-05] MEDS: DOCUSATE SODIUM 100 MG CAPSULE PO SCH ×2 (07:26→20:21)
[2020-02-05] MEDS: ZINC SULFATE 220 MG CAPSULE PO SCH ×2 (07:26→20:24)
[2020-02-05] MEDS: METOPROLOL TARTRATE 25 MG TABLET PO SCH ×3 (07:27→20:24)
[2020-02-05 07:40] LABS: GLUCOMETER DEV NAME(LOC) 4E.2; GLUCOSE,POINT OF CARE 156 MG/DL (70-110)
[2020-02-05 08:00] VITALS: BP 141/55
[2020-02-05 10:18] LABS: BAND NEUTROPHILS % (MANUAL) 13 % (0-5); LYMPHOCYTES % (MANUAL) 3 % (22-44); METAMYELOCYTES % 2 % (0-0); MONOCYTES % (MANUAL) 1 % (2-9); MYELOCYTES % 1 % (0-0); SEGMENTED NEUTROPHILS % 80 % (40-70)
[2020-02-05] MEDS: EPOETIN ALFA 10,000 UNITS/ML 2 ML VIAL SQ SCH (10:32)
[2020-02-05 10:41] LABS: ABG A-A DIFF O2 192.2 mmHg (10-20.0); ABG BASE EXCESS -11.9 mmol/L (-2.0-3.0); ABG CARBOXYHEMOGLOBIN 0.2 % (0.0-1.5); ABG HCO3 15.5 mmol/L (22.0-26.0); ABG METHEMOGLOBIN 0.2 % (0.0-1.5); ABG OXYGEN CONTENT 12.6 mL/dL (15.0-23.0); ABG OXYHEMOGLOBIN 93.6 % (94.0-100.0); ABG PCO2 40 mmHg (35-45); ABG PH 7.216 (7.35-7.450); ABG TOTAL HEMOGLOBIN 9.5 G/dL (12.0-18.0); O2 DEVICE,BLOOD GAS VENTILATOR (ROOM AIR); PO2, ARTERIAL BG 83.5 mmHg (71.0-79.0); SITE, BLOOD GAS ARTERIAL LINE; SOURCE, BLOOD GAS ARTERIAL; TEMPERATURE, FAHRENHEIT, BG 97.7 FAHREN (96.0-98.6); VT, ABG 500 ml
[2020-02-05 10:42] LABS: PEEP,BG 5 cm H2O
[2020-02-05] MEDS ORDERED: DAPTOMYCIN 450 MG in SODIUM CHLORIDE 0.9% 50 ML IV SCH (11:00)
[2020-02-05] MEDS: CefTRIAXone SODIUM 2 GM in DEXTROSE 5%-WATER 50 ML IV SCH (11:28)
[2020-02-05 12:00] VITALS: BP 151/65
[2020-02-05] MEDS: DEXMEDETOMIDINE HCL 200 MCG in SODIUM CHLORIDE 0.9% 48 ML IV PRN (12:46)
[2020-02-05 16:00] VITALS: BP 112/40
[2020-02-05] MEDS ORDERED: ADENOSINE 3 MG/ML 2 ML VIAL IVP ONE (16:15)
[2020-02-05] MEDS ORDERED: HEPARIN SODIUM,PORCINE 1,000 UNITS/ML VIAL ONE (17:29)
[2020-02-05 17:33] LABS: GLUCOSE,POINT OF CARE 165 MG/DL (70-110)
[2020-02-05] MEDS ORDERED: ADENOSINE 3 MG/ML 2 ML VIAL IVP PRN (18:30)
[2020-02-05 20:00] VITALS: BP 117/56
[2020-02-05 20:06] LABS: GLUCOSE,POINT OF CARE 158 MG/DL (70-110)
[2020-02-05] MEDS ORDERED: SODIUM CHLORIDE 0.9% 500 ML IV ONE (22:49)
[2020-02-06] VITALS: BP 106/55
[2020-02-06 00:17] LABS: GLUCOSE,POINT OF CARE 145 MG/DL (70-110)
[2020-02-06 01:55] LABS: APPEARANCE,URINE CLOUDY (CLEAR); BILIRUBIN,URINE PRELIM. POSITIVE (NEGATIVE); GLUCOSE, URINE (UA) NEGATIVE (NEGATIVE); KETONES,URINE NEGATIVE (NEGATIVE); LEUKOCYTE ESTERASE ,URINE SMALL (NEGATIVE); NITRATE,URINE NEGATIVE (NEGATIVE); OCCULT BLOOD,URINE LARGE (NEGATIVE); PROTEIN,URINE POS 1+ (NEGATIVE); UROBILINOGEN,URINE 0.2 mg/dL (<=1.0)
[2020-02-06 01:59] LABS: BACTERIA,URINE Few /HPF (None Seen); SQUAMOUS EPITHELIAL CELL,UR Few /LPF (None Seen)
[2020-02-06] MEDS: PROPOFOL 1000 MG/ISO-OSM 100 ML IV PRN ×2 (02:05→10:43)
[2020-02-06 04:00] VITALS: BP 101/66
[2020-02-06] MEDS: DEXAMETHASONE SOD PHOS 4 MG/ML VIAL IVP SCH ×3 (05:19→17:13)
[2020-02-06] MEDS: INSULIN LISPRO 100 UNITS/ML SQ PRN ×3 (05:20→18:21)
[2020-02-06 05:28] LABS: GLUCOSE,POINT OF CARE 169 MG/DL (70-110)
[2020-02-06 05:41] LABS: HEMATOCRIT 22.7 % (41-53); HEMOGLOBIN 7.9 g/dL (13.5-17.5); MEAN CORPUSCULAR HEMOGLOBIN 29.5 pg (26.0-34.0); MEAN CORPUSCULAR HGB CONC 34.7 G/dL (31.0-37.0); MEAN CORPUSCULAR VOLUME 85 fL (80-100); PLATELET COUNT (AUTO) 415 K/uL (150-450); RED BLOOD CELL COUNT(AUTO) 2.67 MIL/uL (4.50-5.90); RED CELL DISTRIBUTION WIDTH 15.5 % (11.5-14.5)
[2020-02-06 06:38] LABS: ALBUMIN 1.4 g/dL (3.4-5.0); BILIRUBIN,TOTAL 2.1 mg/dL (0.1-1.0); C-REACTIVE PROTEIN QUANT 4.37 mg/dL (0.00-0.30); CALCIUM, TOTAL 6.4 mg/dL (8.8-10.5); CREATININE 2.85 mg/dL (0.60-1.30); TOTAL PROTEIN, SERUM 5.1 g/dL (6.4-8.2)
[2020-02-06] MEDS: ADENOSINE 3 MG/ML 2 ML VIAL IVP PRN ×2 (06:49→14:46)
[2020-02-06 08:00] VITALS: BP 107/52
[2020-02-06] MEDS: VITAMIN B COMP/VIT C/FOLIC ACID CAPSULE PO SCH (08:01)
[2020-02-06] MEDS: PANTOPRAZOLE SODIUM 40 MG/VIAL IVP SCH (08:01)
[2020-02-06] MEDS: MetroNIDAZOLE 500 MG/NACL 100 ML IV SCH ×2 (08:01→15:36)
[2020-02-06] MEDS: ASPIRIN 81 MG EC TABLET PO SCH (08:01)
[2020-02-06] MEDS: DOCUSATE SODIUM 100 MG CAPSULE PO SCH ×2 (08:02→19:53)
[2020-02-06] MEDS: METOPROLOL TARTRATE 25 MG TABLET PO SCH ×3 (08:02→21:26)
[2020-02-06] MEDS: ZINC SULFATE 220 MG CAPSULE PO SCH ×2 (08:02→21:26)
[2020-02-06] MEDS: AMINO ACIDS/PROTEIN HYDROLYS 30 ML TUBE PO SCH ×3 (08:05→16:47)
[2020-02-06] MEDS ORDERED: ADENOSINE 3 MG/ML 2 ML VIAL IVP ONE (08:15)
[2020-02-06] MEDS ORDERED: CALCIUM GLUCONATE 2,000 MG in DEXTROSE 5%-WATER 50 ML IV ONE (08:45)
[2020-02-06 09:05] LABS: BAND NEUTROPHILS % (MANUAL) 13 % (0-5); EOSINOPHILS % (MANUAL) 1 % (1-6); LYMPHOCYTES % (MANUAL) 13 % (22-44); METAMYELOCYTES % 2 % (0-0); MONOCYTES % (MANUAL) 4 % (2-9); MYELOCYTES % 2 % (0-0); SEGMENTED NEUTROPHILS % 65 % (40-70)
[2020-02-06 09:07] LABS: CORRECTED WHITE BLOOD COUNT 37.9 K/uL (4.5-11.0)
[2020-02-06 09:10] LABS: WBC MORPHOLOGY SMUDGE CELLS PRESENT
[2020-02-06] MEDS: CALCITRIOL 0.25 MCG CAPSULE NG SCH (09:33)
[2020-02-06] MEDS: LEVOFLOXACIN 500 MG/D5% WATER 100 ML IV SCH (10:44)
[2020-02-06 12:00] VITALS: BP 97/38
[2020-02-06 12:43] LABS: ABG BASE EXCESS -6.1 mmol/L (-2.0-3.0); ABG CARBOXYHEMOGLOBIN 0.6 % (0.0-1.5); ABG HCO3 19.8 mmol/L (22.0-26.0); ABG METHEMOGLOBIN 0.3 % (0.0-1.5); ABG OXYGEN CONTENT 10.1 mL/dL (15.0-23.0); ABG OXYGEN SATURATION 94.9 % (95.0-98.0); ABG PCO2 37 mmHg (35-45); ABG PH 7.342 (7.35-7.450); ABG TOTAL HEMOGLOBIN 7.5 G/dL (12.0-18.0); O2 DEVICE,BLOOD GAS VENTILATOR (ROOM AIR); PO2, ARTERIAL BG 81.3 mmHg (71.0-79.0); SITE, BLOOD GAS ARTERIAL LINE; SOURCE, BLOOD GAS ARTERIAL; TEMPERATURE, FAHRENHEIT, BG 98.9 FAHREN (96.0-98.6); VT, ABG 500 ml
[2020-02-06 12:44] LABS: PEEP,BG 5 cm H2O
[2020-02-06] MEDS: CefTRIAXone SODIUM 2 GM in DEXTROSE 5%-WATER 50 ML IV SCH (13:14)
[2020-02-06] MEDS: MORPHINE SULFATE 2 MG/ML SYRINGE IVP PRN (14:41)
[2020-02-06 16:00] VITALS: BP 128/75
[2020-02-06 20:00] VITALS: BP 127/73
[2020-02-06] MEDS: DEXMEDETOMIDINE HCL 200 MCG in SODIUM CHLORIDE 0.9% 48 ML IV PRN (20:27)
[2020-02-06] MEDS ORDERED: SODIUM CHLORIDE 0.9% 500 ML IV ONE (23:48)
[2020-02-07] VITALS (8 sets, daily range): BP systolic 124–167; BP diastolic 52–65
[2020-02-07] MEDS: MetroNIDAZOLE 500 MG/NACL 100 ML IV SCH ×4 (00:02→23:42)
[2020-02-07] MEDS: DEXAMETHASONE SOD PHOS 4 MG/ML VIAL IVP SCH ×5 (00:02→23:42)
[2020-02-07] MEDS: INSULIN LISPRO 100 UNITS/ML SQ PRN ×5 (00:41→23:56)
[2020-02-07] MEDS: DEXMEDETOMIDINE HCL 200 MCG in SODIUM CHLORIDE 0.9% 48 ML IV PRN ×2 (03:27→08:36)
[2020-02-07 05:00] LABS: GLUCOSE,POINT OF CARE 150 MG/DL (70-110)
[2020-02-07 05:23] LABS: GLUCOMETER DEV NAME(LOC) 4E.2; GLUCOSE,POINT OF CARE 146 MG/DL (70-110)
[2020-02-07 05:23] LABS: GLUCOMETER DEV NAME(LOC) 4E.2; GLUCOSE,POINT OF CARE 145 MG/DL (70-110)
[2020-02-07 06:02] LABS: HEMOGLOBIN 7.6 g/dL (13.5-17.5); MEAN CORPUSCULAR HEMOGLOBIN 27.6 pg (26.0-34.0); MEAN CORPUSCULAR HGB CONC 31.7 G/dL (31.0-37.0); MEAN CORPUSCULAR VOLUME 87 fL (80-100); PLATELET COUNT (AUTO) 463 K/uL (150-450); RED BLOOD CELL COUNT(AUTO) 2.76 MIL/uL (4.50-5.90)
[2020-02-07] MEDS: MORPHINE SULFATE 2 MG/ML SYRINGE IVP PRN ×2 (06:39→08:37)
[2020-02-07 06:49] LABS: GLUCOSE,POINT OF CARE 153 MG/DL (70-110)
[2020-02-07 07:08] LABS: ALBUMIN 1.5 g/dL (3.4-5.0); BILIRUBIN,TOTAL 1.7 mg/dL (0.1-1.0); C-REACTIVE PROTEIN QUANT 5.3 mg/dL (0.00-0.30); CALCIUM, TOTAL 6.7 mg/dL (8.8-10.5); CREATININE 3.65 mg/dL (0.60-1.30); POTASSIUM 4.5 mmol/L (3.5-5.1); TOTAL PROTEIN, SERUM 5.4 g/dL (6.4-8.2)
[2020-02-07] MEDS: METOPROLOL TARTRATE 25 MG TABLET PO SCH ×3 (09:00→21:04)
[2020-02-07] MEDS: DOCUSATE SODIUM 100 MG CAPSULE PO SCH ×2 (09:00→20:02)
[2020-02-07] MEDS: AMINO ACIDS/PROTEIN HYDROLYS 30 ML TUBE PO SCH ×3 (09:21→17:37)
[2020-02-07] MEDS: VITAMIN B COMP/VIT C/FOLIC ACID CAPSULE PO SCH (09:21)
[2020-02-07] MEDS: ASPIRIN 81 MG EC TABLET PO SCH (09:21)
[2020-02-07] MEDS: PANTOPRAZOLE SODIUM 40 MG/VIAL IVP SCH (09:21)
[2020-02-07] MEDS: ZINC SULFATE 220 MG CAPSULE PO SCH ×2 (09:21→20:02)
[2020-02-07] MEDS: CALCITRIOL 0.25 MCG CAPSULE NG SCH (09:21)
[2020-02-07] MEDS: PROPOFOL 1000 MG/ISO-OSM 100 ML IV PRN ×2 (09:30→15:18)
[2020-02-07 09:36] LABS: BAND NEUTROPHILS % (MANUAL) 14 % (0-5); LYMPHOCYTES % (MANUAL) 15 % (22-44); METAMYELOCYTES % 2 % (0-0); MONOCYTES % (MANUAL) 3 % (2-9); MYELOCYTES % 2 % (0-0); SEGMENTED NEUTROPHILS % 64 % (40-70)
[2020-02-07 09:41] LABS: CORRECTED WHITE BLOOD COUNT 39.2 K/uL (4.5-11.0)
[2020-02-07 09:51] LABS: ABG A-A DIFF O2 253.7 mmHg (10-20.0); ABG BASE EXCESS -3.4 mmol/L (-2.0-3.0); ABG CARBOXYHEMOGLOBIN 0.3 % (0.0-1.5); ABG HCO3 21.2 mmol/L (22.0-26.0); ABG METHEMOGLOBIN 0.3 % (0.0-1.5); ABG OXYGEN SATURATION 89.4 % (95.0-98.0); ABG OXYHEMOGLOBIN 88.9 % (94.0-100.0); ABG PCO2 61 mmHg (35-45); ABG PH 7.222 (7.35-7.450); ABG TOTAL HEMOGLOBIN 9.5 G/dL (12.0-18.0); PO2, ARTERIAL BG 71.1 mmHg (71.0-79.0); SOURCE, BLOOD GAS ARTERIAL; TEMPERATURE, FAHRENHEIT, BG 98.8 FAHREN (96.0-98.6)
[2020-02-07 09:53] LABS: O2 DEVICE,BLOOD GAS VENTILATOR (ROOM AIR); PEEP,BG 5 cm H2O; SITE, BLOOD GAS ARTERIAL LINE; VT, ABG 500 ml
[2020-02-07 09:54] LABS: SPONTANEOUS VT, BG 487 ml
[2020-02-07] MEDS: NOREPINEPHRINE 4 MG/D5%-WATER 250 ML IV PRN ×2 (09:55→12:48)
[2020-02-07] MEDS: CefTRIAXone SODIUM 2 GM in DEXTROSE 5%-WATER 50 ML IV SCH (11:26)
[2020-02-07 12:46] LABS: APPEARANCE,URINE CLOUDY (CLEAR); BILIRUBIN,URINE NEGATIVE (NEGATIVE); GLUCOSE, URINE (UA) NEGATIVE (NEGATIVE); KETONES,URINE NEGATIVE (NEGATIVE); LEUKOCYTE ESTERASE ,URINE NEGATIVE (NEGATIVE); NITRATE,URINE NEGATIVE (NEGATIVE); OCCULT BLOOD,URINE MODERATE (NEGATIVE); PROTEIN,URINE TRACE (NEGATIVE); UROBILINOGEN,URINE 0.2 mg/dL (<=1.0)
[2020-02-07 12:57] LABS: BACTERIA,URINE None Seen /HPF (None Seen); SQUAMOUS EPITHELIAL CELL,UR Few /LPF (None Seen); WBC,URINE None Seen /HPF (0-5); YEAST,URINE Many /HPF (None Seen)
[2020-02-07 14:53] LABS: GLUCOMETER DEV NAME(LOC) 4E.2; GLUCOSE,POINT OF CARE 152 MG/DL (70-110)
[2020-02-07] MEDS: DAPTOMYCIN 450 MG in SODIUM CHLORIDE 0.9% 50 ML IV SCH (16:26)
[2020-02-07] MEDS ORDERED: HEPARIN SODIUM,PORCINE 1,000 UNITS/ML VIAL ONE (18:20)
[2020-02-07 20:02] LABS: GLUCOMETER DEV NAME(LOC) 4E.2; GLUCOSE,POINT OF CARE 181 MG/DL (70-110)
[2020-02-08] VITALS (9 sets, daily range): BP systolic 125–177; BP diastolic 51–84
[2020-02-08] MEDS: PROPOFOL 1000 MG/ISO-OSM 100 ML IV PRN ×4 (00:42→21:48)
[2020-02-08 05:35] LABS: GLUCOSE,POINT OF CARE 158 MG/DL (70-110)
[2020-02-08] MEDS: DEXAMETHASONE SOD PHOS 4 MG/ML VIAL IVP SCH ×3 (05:43→17:21)
[2020-02-08] MEDS: INSULIN LISPRO 100 UNITS/ML SQ PRN ×2 (05:44→18:52)
[2020-02-08 06:18] LABS: HEMATOCRIT 23.4 % (41-53); HEMOGLOBIN 7.6 g/dL (13.5-17.5); MEAN CORPUSCULAR HEMOGLOBIN 28.9 pg (26.0-34.0); MEAN CORPUSCULAR HGB CONC 32.4 G/dL (31.0-37.0); MEAN CORPUSCULAR VOLUME 89 fL (80-100); PLATELET COUNT (AUTO) 446 K/uL (150-450); RED BLOOD CELL COUNT(AUTO) 2.63 MIL/uL (4.50-5.90); RED CELL DISTRIBUTION WIDTH 16.1 % (11.5-14.5)
[2020-02-08 06:59] LABS: GLUCOSE,POINT OF CARE 171 MG/DL (70-110)
[2020-02-08 07:03] LABS: ALBUMIN 1.5 g/dL (3.4-5.0); BILIRUBIN,TOTAL 1.5 mg/dL (0.1-1.0); C-REACTIVE PROTEIN QUANT 3.19 mg/dL (0.00-0.30); CALCIUM, TOTAL 7.1 mg/dL (8.8-10.5); CREATININE 3.01 mg/dL (0.60-1.30); POTASSIUM 4.7 mmol/L (3.5-5.1); TOTAL PROTEIN, SERUM 5.2 g/dL (6.4-8.2)
[2020-02-08] MEDS: DOCUSATE SODIUM 100 MG CAPSULE PO SCH ×2 (08:08→21:00)
[2020-02-08] MEDS: MetroNIDAZOLE 500 MG/NACL 100 ML IV SCH ×2 (08:14→15:23)
[2020-02-08] MEDS: AMINO ACIDS/PROTEIN HYDROLYS 30 ML TUBE PO SCH ×3 (08:14→17:21)
[2020-02-08] MEDS: CALCITRIOL 0.25 MCG CAPSULE NG SCH (08:15)
[2020-02-08] MEDS: ASPIRIN 81 MG EC TABLET PO SCH (08:15)
[2020-02-08] MEDS: ZINC SULFATE 220 MG CAPSULE PO SCH ×2 (08:15→21:46)
[2020-02-08] MEDS: VITAMIN B COMP/VIT C/FOLIC ACID CAPSULE PO SCH (08:15)
[2020-02-08] MEDS: METOPROLOL TARTRATE 25 MG TABLET PO SCH ×3 (08:15→21:46)
[2020-02-08] MEDS: PANTOPRAZOLE SODIUM 40 MG/VIAL IVP SCH (08:15)
[2020-02-08] MEDS: EPOETIN ALFA 10,000 UNITS/ML 2 ML VIAL SQ SCH (08:17)
[2020-02-08 09:01] LABS: ABG A-A DIFF O2 181.6 mmHg (10-20.0); ABG BASE EXCESS -7.4 mmol/L (-2.0-3.0); ABG CARBOXYHEMOGLOBIN 0.6 % (0.0-1.5); ABG HCO3 18.9 mmol/L (22.0-26.0); ABG METHEMOGLOBIN 0.3 % (0.0-1.5); ABG OXYGEN CONTENT 12.3 mL/dL (15.0-23.0); ABG OXYGEN SATURATION 89.8 % (95.0-98.0); ABG PCO2 34 mmHg (35-45); ABG PH 7.351 (7.35-7.450); ABG TOTAL HEMOGLOBIN 9.8 G/dL (12.0-18.0); PO2, ARTERIAL BG 65.2 mmHg (71.0-79.0); SOURCE, BLOOD GAS ARTERIAL; TEMPERATURE, FAHRENHEIT, BG 98.5 FAHREN (96.0-98.6)
[2020-02-08 09:03] LABS: O2 DEVICE,BLOOD GAS VENTILATOR (ROOM AIR); PEEP,BG 5 cm H2O; SITE, BLOOD GAS A LINE; SPONTANEOUS VT, BG 481 ml; VT, ABG 500 ml
[2020-02-08] MEDS ORDERED: SODIUM CHLORIDE 0.9% 1,000 ML ONE (09:36)
[2020-02-08] MEDS ORDERED: *CLINICAL-BACTRIM/SEPTRA IVPB DOSING CLINICAL ONE (11:30)
[2020-02-08] MEDS: CefTRIAXone SODIUM 2 GM in DEXTROSE 5%-WATER 50 ML IV SCH (11:36)
[2020-02-08] MEDS ORDERED: HEPARIN SODIUM,PORCINE 1,000 UNITS/ML VIAL IVP ONE ×3 (12:00→16:19)
[2020-02-08 12:14] LABS: SEGMENTED NEUTROPHILS % 89 % (40-70)
[2020-02-08 12:15] LABS: BAND NEUTROPHILS % (MANUAL) 5 % (0-5); LYMPHOCYTES % (MANUAL) 2 % (22-44); MONOCYTES % (MANUAL) 2 % (2-9); MYELOCYTES % 2 % (0-0)
[2020-02-08 12:17] LABS: CORRECTED WHITE BLOOD COUNT 30.1 K/uL (4.5-11.0)
[2020-02-08] MEDS: SULFAMETHOX/TRIMETH 25 ML in DEXTROSE 5%-WATER 250 ML IV SCH (13:12)
[2020-02-08 16:36] LABS: GLUCOMETER DEV NAME(LOC) 4E.2; GLUCOSE,POINT OF CARE 140 MG/DL (70-110)
[2020-02-08 17:47] LABS: GLUCOMETER DEV NAME(LOC) 4E.2; GLUCOSE,POINT OF CARE 163 MG/DL (70-110)
[2020-02-09] VITALS (8 sets, daily range): BP systolic 120–173; BP diastolic 47–75
[2020-02-09] MEDS: MetroNIDAZOLE 500 MG/NACL 100 ML IV SCH ×3 (00:30→16:22)
[2020-02-09] MEDS: DEXAMETHASONE SOD PHOS 4 MG/ML VIAL IVP SCH ×4 (00:32→17:26)
[2020-02-09 01:01] LABS: GLUCOSE,POINT OF CARE 167 MG/DL (70-110)
[2020-02-09] MEDS: INSULIN LISPRO 100 UNITS/ML SQ PRN ×4 (01:03→17:46)
[2020-02-09] MEDS: PROPOFOL 1000 MG/ISO-OSM 100 ML IV PRN ×2 (03:23→06:18)
[2020-02-09 05:31] LABS: HEMATOCRIT 26.1 % (41-53); HEMOGLOBIN 8.5 g/dL (13.5-17.5); MEAN CORPUSCULAR HEMOGLOBIN 29.5 pg (26.0-34.0); MEAN CORPUSCULAR HGB CONC 32.4 G/dL (31.0-37.0); MEAN CORPUSCULAR VOLUME 91 fL (80-100); PLATELET COUNT (AUTO) 473 K/uL (150-450); RED BLOOD CELL COUNT(AUTO) 2.87 MIL/uL (4.50-5.90); RED CELL DISTRIBUTION WIDTH 17.4 % (11.5-14.5)
[2020-02-09 06:03] LABS: ALBUMIN 1.7 g/dL (3.4-5.0); BILIRUBIN,TOTAL 1.3 mg/dL (0.1-1.0); C-REACTIVE PROTEIN QUANT 1.91 mg/dL (0.00-0.30); CALCIUM, TOTAL 7.1 mg/dL (8.8-10.5); CREATININE 2.48 mg/dL (0.60-1.30); POTASSIUM 5.1 mmol/L (3.5-5.1); TOTAL PROTEIN, SERUM 5.4 g/dL (6.4-8.2)
[2020-02-09 06:49] LABS: CORRECTED WHITE BLOOD COUNT 27.4 K/uL (4.5-11.0)
[2020-02-09 07:22] LABS: BAND NEUTROPHILS % (MANUAL) 6 % (0-5); LYMPHOCYTES % (MANUAL) 2 % (22-44); METAMYELOCYTES % 1 % (0-0); MONOCYTES % (MANUAL) 3 % (2-9); MYELOCYTES % 1 % (0-0); SEGMENTED NEUTROPHILS % 87 % (40-70)
[2020-02-09] MEDS: PANTOPRAZOLE SODIUM 40 MG/VIAL IVP SCH (08:04)
[2020-02-09] MEDS: ASPIRIN 81 MG EC TABLET PO SCH (08:04)
[2020-02-09] MEDS: AMINO ACIDS/PROTEIN HYDROLYS 30 ML TUBE PO SCH ×3 (08:04→16:23)
[2020-02-09] MEDS: METOPROLOL TARTRATE 25 MG TABLET PO SCH ×3 (08:04→21:13)
[2020-02-09] MEDS: CALCITRIOL 0.25 MCG CAPSULE NG SCH (08:05)
[2020-02-09] MEDS: VITAMIN B COMP/VIT C/FOLIC ACID CAPSULE PO SCH (08:05)
[2020-02-09] MEDS: ZINC SULFATE 220 MG CAPSULE PO SCH ×2 (08:05→21:13)
[2020-02-09] MEDS: DOCUSATE SODIUM 100 MG CAPSULE PO SCH ×3 (08:05→21:13)
[2020-02-09 08:15] LABS: GLUCOSE,POINT OF CARE 171 MG/DL (70-110)
[2020-02-09] MEDS ORDERED: BUMETANIDE 0.25 MG/ML 4 ML VIAL IM ONE (09:15)
[2020-02-09] MEDS: CefTRIAXone SODIUM 2 GM in DEXTROSE 5%-WATER 50 ML IV SCH (11:24)
[2020-02-09 12:02] LABS: GLUCOSE,POINT OF CARE 184 MG/DL (70-110)
[2020-02-09] MEDS: SULFAMETHOX/TRIMETH 25 ML in DEXTROSE 5%-WATER 250 ML IV SCH (13:51)
[2020-02-09] MEDS: DAPTOMYCIN 450 MG in SODIUM CHLORIDE 0.9% 50 ML IV SCH (16:22)
[2020-02-09 18:00] LABS: GLUCOSE,POINT OF CARE 166 MG/DL (70-110)
[2020-02-09] MEDS: ADENOSINE 3 MG/ML 2 ML VIAL IVP PRN (22:34)
[2020-02-09] MEDS ORDERED: SODIUM CHLORIDE 0.9% 250 ML IV ONE (22:40)
[2020-02-10] VITALS: BP 137/60
[2020-02-10] MEDS: DEXAMETHASONE SOD PHOS 4 MG/ML VIAL IVP SCH ×5 (00:33→23:45)
[2020-02-10] MEDS: MetroNIDAZOLE 500 MG/NACL 100 ML IV SCH ×4 (00:33→23:43)
[2020-02-10] MEDS: INSULIN LISPRO 100 UNITS/ML SQ PRN ×3 (00:35→23:41)
[2020-02-10 02:07] LABS: GLUCOMETER DEV NAME(LOC) 4E.2; GLUCOSE,POINT OF CARE 164 MG/DL (70-110)
[2020-02-10 04:00] VITALS: BP 143/58
[2020-02-10 05:24] LABS: HEMATOCRIT 26.3 % (41-53); HEMOGLOBIN 8.5 g/dL (13.5-17.5); MEAN CORPUSCULAR HGB CONC 32.4 G/dL (31.0-37.0); MEAN CORPUSCULAR VOLUME 93 fL (80-100); PLATELET COUNT (AUTO) 460 K/uL (150-450); RED BLOOD CELL COUNT(AUTO) 2.85 MIL/uL (4.50-5.90); RED CELL DISTRIBUTION WIDTH 20.5 % (11.5-14.5)
[2020-02-10 06:04] LABS: ALBUMIN 1.7 g/dL (3.4-5.0); BILIRUBIN,TOTAL 1.2 mg/dL (0.1-1.0); C-REACTIVE PROTEIN QUANT 1.03 mg/dL (0.00-0.30); CALCIUM, TOTAL 6.7 mg/dL (8.8-10.5); CREATININE 3.01 mg/dL (0.60-1.30); POTASSIUM 4.8 mmol/L (3.5-5.1); TOTAL PROTEIN, SERUM 5.2 g/dL (6.4-8.2)
[2020-02-10 06:53] LABS: BAND NEUTROPHILS % (MANUAL) 5 % (0-5); LYMPHOCYTES % (MANUAL) 7 % (22-44); METAMYELOCYTES % 1 % (0-0); MONOCYTES % (MANUAL) 2 % (2-9); MYELOCYTES % 1 % (0-0); SEGMENTED NEUTROPHILS % 84 % (40-70)
[2020-02-10 07:32] LABS: GLUCOMETER DEV NAME(LOC) 4E.2; GLUCOSE,POINT OF CARE 172 MG/DL (70-110)
[2020-02-10 08:00] VITALS: BP 173/75
[2020-02-10] MEDS: AMINO ACIDS/PROTEIN HYDROLYS 30 ML TUBE PO SCH ×3 (08:27→15:19)
[2020-02-10] MEDS: ZINC SULFATE 220 MG CAPSULE PO SCH ×2 (08:28→22:43)
[2020-02-10] MEDS: ASPIRIN 81 MG EC TABLET PO SCH (08:28)
[2020-02-10] MEDS: METOPROLOL TARTRATE 25 MG TABLET PO SCH ×3 (08:28→22:42)
[2020-02-10] MEDS: CALCITRIOL 0.25 MCG CAPSULE NG SCH (08:28)
[2020-02-10] MEDS: PANTOPRAZOLE SODIUM 40 MG/VIAL IVP SCH (08:28)
[2020-02-10] MEDS: EPOETIN ALFA 10,000 UNITS/ML 2 ML VIAL SQ SCH (08:29)
[2020-02-10] MEDS: DOCUSATE SODIUM 100 MG CAPSULE PO SCH ×2 (08:29→22:42)
[2020-02-10] MEDS: VITAMIN B COMP/VIT C/FOLIC ACID CAPSULE PO SCH (08:29)
[2020-02-10 10:25] LABS: ABG A-A DIFF O2 174.3 mmHg (10-20.0); ABG BASE EXCESS -2.8 mmol/L (-2.0-3.0); ABG CARBOXYHEMOGLOBIN 0.7 % (0.0-1.5); ABG HCO3 22.8 mmol/L (22.0-26.0); ABG METHEMOGLOBIN 0.3 % (0.0-1.5); ABG OXYGEN CONTENT 14.3 mL/dL (15.0-23.0); ABG OXYGEN SATURATION 95.5 % (95.0-98.0); ABG OXYHEMOGLOBIN 94.5 % (94.0-100.0); ABG PCO2 29 mmHg (35-45); ABG PH 7.472 (7.35-7.450); ABG TOTAL HEMOGLOBIN 10.7 G/dL (12.0-18.0); PO2, ARTERIAL BG 77.3 mmHg (71.0-79.0); SOURCE, BLOOD GAS ARTERIAL; TEMPERATURE, FAHRENHEIT, BG 98.6 FAHREN (96.0-98.6)
[2020-02-10 10:26] LABS: O2 DEVICE,BLOOD GAS VENTILATOR (ROOM AIR); SITE, BLOOD GAS ART-LINE
[2020-02-10 10:27] LABS: VT, ABG 500 ml
[2020-02-10 10:28] LABS: PEEP,BG 5 cm H2O
[2020-02-10 12:00] VITALS: BP 100/42
[2020-02-10] MEDS: CefTRIAXone SODIUM 2 GM in DEXTROSE 5%-WATER 50 ML IV SCH (12:04)
[2020-02-10] MEDS: SULFAMETHOX/TRIMETH 25 ML in DEXTROSE 5%-WATER 250 ML IV SCH (13:36)
[2020-02-10] MEDS: ADENOSINE 3 MG/ML 2 ML VIAL IVP PRN (14:14)
[2020-02-10] MEDS ORDERED: ADENOSINE 3 MG/ML 2 ML VIAL IVP ONE (14:45)
[2020-02-10] MEDS ORDERED: AMIODARONE HCL 150 MG in DEXTROSE 5%-WATER 97 ML IV ONE (14:45)
[2020-02-10] MEDS ORDERED: AMIODARONE HCL 360 MG in DEXTROSE 5%-WATER 242.8 ML IV ONE (15:00)
[2020-02-10] MEDS ORDERED: SODIUM CHLORIDE 0.9% 250 ML IV ONE (15:16)
[2020-02-10 16:00] VITALS: BP 124/52
[2020-02-10 17:50] LABS: GLUCOMETER DEV NAME(LOC) 4E.2; GLUCOSE,POINT OF CARE 147 MG/DL (70-110)
[2020-02-10 20:00] VITALS: BP 114/63
[2020-02-10 23:51] LABS: GLUCOSE,POINT OF CARE 153 MG/DL (70-110)
[2020-02-11] VITALS: BP 125/53
[2020-02-11 01:04] LABS: GLUCOMETER DEV NAME(LOC) 4E.2; GLUCOSE,POINT OF CARE 207 MG/DL (70-110)
[2020-02-11] MEDS ORDERED: AMIODARONE HCL 540 MG in DEXTROSE 5%-WATER 239.2 ML IV ONE (02:00)
[2020-02-11 04:00] VITALS: BP 133/56
[2020-02-11 05:03] LABS: GLUCOSE,POINT OF CARE 136 MG/DL (70-110)
[2020-02-11] MEDS: INSULIN LISPRO 100 UNITS/ML SQ PRN (05:30)
[2020-02-11] MEDS: DEXAMETHASONE SOD PHOS 4 MG/ML VIAL IVP SCH ×3 (05:31→17:12)
[2020-02-11 06:09] LABS: HEMATOCRIT 25.9 % (41-53); HEMOGLOBIN 8.3 g/dL (13.5-17.5); MEAN CORPUSCULAR HEMOGLOBIN 30.2 pg (26.0-34.0); MEAN CORPUSCULAR HGB CONC 31.9 G/dL (31.0-37.0); MEAN CORPUSCULAR VOLUME 95 fL (80-100); PLATELET COUNT (AUTO) 285 K/uL (150-450); RED BLOOD CELL COUNT(AUTO) 2.74 MIL/uL (4.50-5.90); RED CELL DISTRIBUTION WIDTH 25.1 % (11.5-14.5)
[2020-02-11 06:45] LABS: ALBUMIN 1.6 g/dL (3.4-5.0); BILIRUBIN,TOTAL 1.1 mg/dL (0.1-1.0); C-REACTIVE PROTEIN QUANT 0.81 mg/dL (0.00-0.30); CALCIUM, TOTAL 6.4 mg/dL (8.8-10.5); CREATININE 2.59 mg/dL (0.60-1.30); POTASSIUM 3.9 mmol/L (3.5-5.1); TOTAL PROTEIN, SERUM 4.8 g/dL (6.4-8.2)
[2020-02-11 06:58] LABS: GLUCOMETER DEV NAME(LOC) 4E.2; GLUCOSE,POINT OF CARE 158 MG/DL (70-110)
[2020-02-11 08:00] VITALS: BP 139/62
[2020-02-11] MEDS: MetroNIDAZOLE 500 MG/NACL 100 ML IV SCH ×2 (08:21→17:12)
[2020-02-11] MEDS: VITAMIN B COMP/VIT C/FOLIC ACID CAPSULE PO SCH (08:21)
[2020-02-11] MEDS: CALCITRIOL 0.25 MCG CAPSULE NG SCH (08:21)
[2020-02-11] MEDS: PANTOPRAZOLE SODIUM 40 MG/VIAL IVP SCH (08:22)
[2020-02-11] MEDS: ASPIRIN 81 MG EC TABLET PO SCH (08:22)
[2020-02-11] MEDS: METOPROLOL TARTRATE 25 MG TABLET PO SCH ×3 (08:22→20:36)
[2020-02-11] MEDS: ZINC SULFATE 220 MG CAPSULE PO SCH ×2 (08:23→20:36)
[2020-02-11] MEDS: AMINO ACIDS/PROTEIN HYDROLYS 30 ML TUBE PO SCH ×3 (08:23→16:59)
[2020-02-11] MEDS: DOCUSATE SODIUM 100 MG CAPSULE PO SCH ×2 (08:23→21:00)
[2020-02-11] MEDS ORDERED: SODIUM CHLORIDE 0.9% 2,000 ML ONE (09:24)
[2020-02-11 09:33] LABS: BAND NEUTROPHILS % (MANUAL) 4 % (0-5); LYMPHOCYTES % (MANUAL) 7 % (22-44); METAMYELOCYTES % 1 % (0-0); MONOCYTES % (MANUAL) 5 % (2-9); MYELOCYTES % 1 % (0-0); SEGMENTED NEUTROPHILS % 82 % (40-70)
[2020-02-11] MEDS: NOREPINEPHRINE 4 MG/D5%-WATER 250 ML IV PRN (11:37)
[2020-02-11 12:00] VITALS: BP 139/62
[2020-02-11 12:03] LABS: ABG A-A DIFF O2 190.8 mmHg (10-20.0); ABG BASE EXCESS -2.3 mmol/L (-2.0-3.0); ABG CARBOXYHEMOGLOBIN 1.2 % (0.0-1.5); ABG METHEMOGLOBIN 0.3 % (0.0-1.5); ABG OXYGEN CONTENT 14.6 mL/dL (15.0-23.0); ABG OXYGEN SATURATION 88.4 % (95.0-98.0); ABG OXYHEMOGLOBIN 87.1 % (94.0-100.0); ABG PCO2 32 mmHg (35-45); ABG PH 7.455 (7.35-7.450); ABG TOTAL HEMOGLOBIN 11.9 G/dL (12.0-18.0); O2 DEVICE,BLOOD GAS VENTILATOR (ROOM AIR); PO2, ARTERIAL BG 58.2 mmHg (71.0-79.0); SITE, BLOOD GAS ARTERIAL LINE; SOURCE, BLOOD GAS ARTERIAL; TEMPERATURE, FAHRENHEIT, BG 98.6 FAHREN (96.0-98.6)
[2020-02-11 12:04] LABS: PEEP,BG 5 cm H2O; SPONTANEOUS VT, BG 430 ml; VT, ABG 500 ml
[2020-02-11] MEDS: CefTRIAXone SODIUM 2 GM in DEXTROSE 5%-WATER 50 ML IV SCH (13:30)
[2020-02-11] MEDS ORDERED: SODIUM CHLORIDE 0.9% 1,000 ML ONE (14:12)
[2020-02-11] MEDS: SULFAMETHOX/TRIMETH 25 ML in DEXTROSE 5%-WATER 250 ML IV SCH (15:06)
[2020-02-11 16:00] VITALS: BP 141/59
[2020-02-11] MEDS ORDERED: HEPARIN SODIUM,PORCINE 1,000 UNITS/ML VIAL ONE (17:19)
[2020-02-11] MEDS ORDERED: HEPARIN SODIUM,PORCINE 1,000 UNITS/ML VIAL IVP ONE (18:23)
[2020-02-11 18:56] LABS: GLUCOSE,POINT OF CARE 146 MG/DL (70-110)
[2020-02-11 20:00] VITALS: BP 152/44
[2020-02-11] MEDS: AMIODARONE HCL 750 MG in DEXTROSE 5%-WATER 485 ML IV SCH (20:35)
[2020-02-11] MEDS ORDERED: SODIUM CHLORIDE 0.9% 250 ML IV ONE (20:58)
[2020-02-12] VITALS: BP 147/48
[2020-02-12] MEDS: INSULIN LISPRO 100 UNITS/ML SQ PRN ×3 (00:24→23:51)
[2020-02-12] MEDS: MetroNIDAZOLE 500 MG/NACL 100 ML IV SCH ×4 (00:29→23:24)
[2020-02-12] MEDS: DEXAMETHASONE SOD PHOS 4 MG/ML VIAL IVP SCH ×5 (00:29→23:24)
[2020-02-12] MEDS: NOREPINEPHRINE 4 MG/D5%-WATER 250 ML IV PRN (00:43)
[2020-02-12 04:00] VITALS: BP 163/48
[2020-02-12 04:12] LABS: GLUCOSE,POINT OF CARE 173 MG/DL (70-110)
[2020-02-12 06:20] LABS: HEMATOCRIT 27.9 % (41-53); HEMOGLOBIN 8.8 g/dL (13.5-17.5); MEAN CORPUSCULAR HEMOGLOBIN 30.1 pg (26.0-34.0); MEAN CORPUSCULAR HGB CONC 31.4 G/dL (31.0-37.0); MEAN CORPUSCULAR VOLUME 96 fL (80-100); PLATELET COUNT (AUTO) 313 K/uL (150-450); RED CELL DISTRIBUTION WIDTH 26.1 % (11.5-14.5)
[2020-02-12 07:06] LABS: ALBUMIN 1.7 g/dL (3.4-5.0); BILIRUBIN,TOTAL 1.1 mg/dL (0.1-1.0); C-REACTIVE PROTEIN QUANT 0.95 mg/dL (0.00-0.30); CALCIUM, TOTAL 6.8 mg/dL (8.8-10.5); CREATININE 2.54 mg/dL (0.60-1.30); POTASSIUM 4.2 mmol/L (3.5-5.1); TOTAL PROTEIN, SERUM 4.9 g/dL (6.4-8.2)
[2020-02-12 08:00] VITALS: BP 166/69
[2020-02-12] MEDS: MORPHINE SULFATE 2 MG/ML SYRINGE IVP PRN (08:03)
[2020-02-12] MEDS: DOCUSATE SODIUM 100 MG CAPSULE PO SCH ×2 (08:03→20:25)
[2020-02-12] MEDS: PANTOPRAZOLE SODIUM 40 MG/VIAL IVP SCH (08:47)
[2020-02-12] MEDS: ZINC SULFATE 220 MG CAPSULE PO SCH ×2 (08:47→20:29)
[2020-02-12] MEDS: METOPROLOL TARTRATE 25 MG TABLET PO SCH ×3 (08:47→20:26)
[2020-02-12] MEDS: ASPIRIN 81 MG EC TABLET PO SCH (08:47)
[2020-02-12] MEDS: CALCITRIOL 0.25 MCG CAPSULE NG SCH (08:48)
[2020-02-12] MEDS: VITAMIN B COMP/VIT C/FOLIC ACID CAPSULE PO SCH (08:48)
[2020-02-12] MEDS: AMINO ACIDS/PROTEIN HYDROLYS 30 ML TUBE PO SCH ×3 (08:49→17:20)
[2020-02-12] MEDS: CefTRIAXone SODIUM 2 GM in DEXTROSE 5%-WATER 50 ML IV SCH (11:36)
[2020-02-12] MEDS: AMIODARONE HCL 200 MG TABLET PO SCH ×3 (11:38→20:29)
[2020-02-12] MEDS: EPOETIN ALFA 10,000 UNITS/ML 2 ML VIAL SQ SCH (11:38)
[2020-02-12 11:39] LABS: GLUCOSE,POINT OF CARE 216 MG/DL (70-110)
[2020-02-12 12:00] VITALS: BP 124/55
[2020-02-12] MEDS: PROPOFOL 1000 MG/ISO-OSM 100 ML IV PRN (12:28)
[2020-02-12] MEDS: SULFAMETHOX/TRIMETH 25 ML in DEXTROSE 5%-WATER 250 ML IV SCH (12:30)
[2020-02-12 13:11] LABS: BAND NEUTROPHILS % (MANUAL) 3 % (0-5); LYMPHOCYTES % (MANUAL) 2 % (22-44); METAMYELOCYTES % 1 % (0-0); MONOCYTES % (MANUAL) 4 % (2-9); MYELOCYTES % 1 % (0-0); SEGMENTED NEUTROPHILS % 89 % (40-70)
[2020-02-12 13:12] LABS: CORRECTED WHITE BLOOD COUNT 36.3 K/uL (4.5-11.0)
[2020-02-12 15:22] LABS: GLUCOMETER DEV NAME(LOC) 4E.2; GLUCOSE,POINT OF CARE 179 MG/DL (70-110)
[2020-02-12 16:00] VITALS: BP 148/71
[2020-02-12] MEDS: AMIODARONE HCL 750 MG in DEXTROSE 5%-WATER 485 ML IV SCH (17:20)
[2020-02-12 18:25] LABS: GLUCOMETER DEV NAME(LOC) 4E.2; GLUCOSE,POINT OF CARE 148 MG/DL (70-110)
[2020-02-12 20:00] VITALS: BP 136/70
[2020-02-12 21:03] LABS: APPEARANCE,URINE TURBID (CLEAR); GLUCOSE, URINE (UA) NEGATIVE (NEGATIVE); KETONES,URINE TRACE mg/dL (NEGATIVE); LEUKOCYTE ESTERASE ,URINE LARGE (NEGATIVE); NITRATE,URINE POSITIVE (NEGATIVE); OCCULT BLOOD,URINE LARGE (NEGATIVE); PROTEIN,URINE SEE CONFIRM (NEGATIVE); UROBILINOGEN,URINE 0.2 mg/dL (<=1.0)
[2020-02-12 21:06] LABS: BILIRUBIN,URINE PRELIM. POSITIVE (NEGATIVE)
[2020-02-12 21:33] LABS: C.DIFF GDH ANTIGEN, Stool Negative (Negative); C.DIFF TOXINS A&B, Stool Negative (Negative)
[2020-02-12 21:36] LABS: SULFOSALICYLIC ACID,URINE 4+ (Negative)
[2020-02-12 21:37] LABS: RBC,URINE >100 /HPF (0-2)
[2020-02-12 21:38] LABS: BACTERIA,URINE Many /HPF (None Seen); WBC,URINE 26-50 /HPF (0-5); YEAST,URINE Many /HPF (None Seen)
[2020-02-12 21:39] LABS: SQUAMOUS EPITHELIAL CELL,UR Few /LPF (None Seen)
[2020-02-12] MEDS ORDERED: SODIUM CHLORIDE 0.9% 500 ML IV ONE (22:35)
[2020-02-12] MEDS: NOREPINEPHRINE BITARTRATE 16 MG in DEXTROSE 5%-WATER 234 ML IV PRN (22:38)
[2020-02-13] VITALS: BP 155/82
[2020-02-13] MEDS ORDERED: SODIUM CHLORIDE 0.9% 250 ML IV ONE (00:11)
[2020-02-13] MEDS: PROPOFOL 1000 MG/ISO-OSM 100 ML IV PRN ×5 (01:18→23:57)
[2020-02-13 04:00] VITALS: BP 140/76
[2020-02-13] MEDS: DEXAMETHASONE SOD PHOS 4 MG/ML VIAL IVP SCH ×4 (05:24→23:14)
[2020-02-13] MEDS: INSULIN LISPRO 100 UNITS/ML SQ PRN ×3 (05:25→23:40)
[2020-02-13 06:09] LABS: GLUCOSE,POINT OF CARE 194 MG/DL (70-110)
[2020-02-13 06:38] LABS: GLUCOMETER DEV NAME(LOC) 4E.2; GLUCOSE,POINT OF CARE 199 MG/DL (70-110); HEMATOCRIT 28.2 % (41-53); HEMOGLOBIN 8.6 g/dL (13.5-17.5); MEAN CORPUSCULAR HEMOGLOBIN 29.9 pg (26.0-34.0); MEAN CORPUSCULAR HGB CONC 30.6 G/dL (31.0-37.0); MEAN CORPUSCULAR VOLUME 98 fL (80-100); PLATELET COUNT (AUTO) 304 K/uL (150-450); RED BLOOD CELL COUNT(AUTO) 2.88 MIL/uL (4.50-5.90); RED CELL DISTRIBUTION WIDTH 27.2 % (11.5-14.5)
[2020-02-13 07:12] LABS: BAND NEUTROPHILS % (MANUAL) 0 % (0-5)
[2020-02-13 08:00] VITALS: BP 147/65
[2020-02-13] MEDS: PANTOPRAZOLE SODIUM 40 MG/VIAL IVP SCH (08:15)
[2020-02-13] MEDS: ZINC SULFATE 220 MG CAPSULE PO SCH ×2 (08:16→20:30)
[2020-02-13] MEDS: ASPIRIN 81 MG EC TABLET PO SCH (08:16)
[2020-02-13] MEDS: METOPROLOL TARTRATE 25 MG TABLET PO SCH ×3 (08:16→20:19)
[2020-02-13] MEDS: VITAMIN B COMP/VIT C/FOLIC ACID CAPSULE PO SCH (08:16)
[2020-02-13] MEDS: CALCITRIOL 0.25 MCG CAPSULE NG SCH (08:16)
[2020-02-13] MEDS: DOCUSATE SODIUM 100 MG CAPSULE PO SCH ×2 (08:16→20:00)
[2020-02-13] MEDS: AMIODARONE HCL 200 MG TABLET PO SCH ×3 (08:16→20:30)
[2020-02-13] MEDS: AMINO ACIDS/PROTEIN HYDROLYS 30 ML TUBE PO SCH ×3 (08:16→17:15)
[2020-02-13 08:17] LABS: ALBUMIN 1.7 g/dL (3.4-5.0); ALKALINE PHOSPHATASE 186 U/L (46-116); ANION GAP 20 mmol/L (8-16); ASPARTATE AMINOTRANSFERASE 76 U/L (15-37); C-REACTIVE PROTEIN QUANT 0.57 mg/dL (0.00-0.30); CALCIUM, TOTAL 6.4 mg/dL (8.8-10.5); CARBON DIOXIDE 16 mmol/L (22-29); CHLORIDE 96 mmol/L (98-107); CHOL/HDL RATIO 14.2 (4.2-7.3); CHOLESTEROL 156 mg/dL (131-200); CREATININE 2.94 mg/dL (0.60-1.30); FERRITIN 727 ng/mL (26-388); GLOMERULAR FILTR. RATE CALC 21 mL/min (>60); GLUCOSE,RANDOM 208 mg/dL (70-110); HDL CHOLESTEROL 11 mg/dL (40-60); POTASSIUM 4.4 mmol/L (3.5-5.1); SODIUM SERUM 132 mmol/L (136-145); TOTAL PROTEIN, SERUM 4.9 g/dL (6.4-8.2); TRIGLYCERIDES 532 mg/dL (15-150); UREA NITROGEN, BLOOD 100 mg/dL (7-18)
[2020-02-13] MEDS: MetroNIDAZOLE 500 MG/NACL 100 ML IV SCH ×3 (08:17→23:14)
[2020-02-13 08:43] LABS: ALANINE AMINOTRANSFERASE 95 U/L (12-78)
[2020-02-13] MEDS: ASPIRIN 81 MG CHEWABLE TABLET PO SCH (09:00)
[2020-02-13] MEDS: CefTRIAXone SODIUM 2 GM in DEXTROSE 5%-WATER 50 ML IV SCH (11:14)
[2020-02-13 12:00] VITALS: BP 140/69
[2020-02-13 13:15] LABS: LYMPHOCYTES % (MANUAL) 1 % (22-44); METAMYELOCYTES % 2 % (0-0); MONOCYTES % (MANUAL) 3 % (2-9); SEGMENTED NEUTROPHILS % 94 % (40-70)
[2020-02-13 13:17] LABS: CORRECTED WHITE BLOOD COUNT 40.4 K/uL (4.5-11.0)
[2020-02-13] MEDS ORDERED: SODIUM CHLORIDE 0.9% 2,000 ML ONE (14:31)
[2020-02-13] MEDS ORDERED: LIDOCAINE 2% 30 ML JELLY TP PRN (14:45)
[2020-02-13] MEDS ORDERED: CASPOFUNGIN ACETATE 70 MG in SODIUM CHLORIDE 0.9% 250 ML IV ONE (15:00)
[2020-02-13 15:18] LABS: GLUCOSE,POINT OF CARE 211 MG/DL (70-110)
[2020-02-13 16:00] VITALS: BP 111/61
[2020-02-13] MEDS: AMIODARONE HCL 750 MG in DEXTROSE 5%-WATER 485 ML IV SCH (16:38)
[2020-02-13 18:27] LABS: GLUCOMETER DEV NAME(LOC) 4E.2; GLUCOSE,POINT OF CARE 151 MG/DL (70-110)
[2020-02-13] MEDS: SULFAMETHOX/TRIMETH 25 ML in DEXTROSE 5%-WATER 250 ML IV SCH (18:32)
[2020-02-13 20:00] VITALS: BP 164/74
[2020-02-14] VITALS: BP 148/77
[2020-02-14] MEDS: NOREPINEPHRINE BITARTRATE 16 MG in DEXTROSE 5%-WATER 234 ML IV PRN (00:57)
[2020-02-14] MEDS ORDERED: SODIUM CHLORIDE 0.9% 250 ML IV ONE (01:07)
[2020-02-14 04:00] VITALS: BP 148/72
[2020-02-14] MEDS: DEXAMETHASONE SOD PHOS 4 MG/ML VIAL IVP SCH ×3 (05:14→17:22)
[2020-02-14] MEDS: PROPOFOL 1000 MG/ISO-OSM 100 ML IV PRN ×3 (05:50→17:54)
[2020-02-14] MEDS: INSULIN LISPRO 100 UNITS/ML SQ PRN ×3 (05:52→23:15)
[2020-02-14 06:49] LABS: HEMATOCRIT 26.1 % (41-53); HEMOGLOBIN 8.2 g/dL (13.5-17.5); MEAN CORPUSCULAR HEMOGLOBIN 31.3 pg (26.0-34.0); MEAN CORPUSCULAR HGB CONC 31.5 G/dL (31.0-37.0); MEAN CORPUSCULAR VOLUME 100 fL (80-100); PLATELET COUNT (AUTO) 184 K/uL (150-450); RED BLOOD CELL COUNT(AUTO) 2.62 MIL/uL (4.50-5.90); RED CELL DISTRIBUTION WIDTH 27.9 % (11.5-14.5)
[2020-02-14 06:56] LABS: GLUCOSE,POINT OF CARE 176 MG/DL (70-110)
[2020-02-14 07:28] LABS: ALBUMIN 1.9 g/dL (3.4-5.0); BILIRUBIN,TOTAL 0.9 mg/dL (0.1-1.0); C-REACTIVE PROTEIN QUANT 0.67 mg/dL (0.00-0.30); CALCIUM, TOTAL 6.8 mg/dL (8.8-10.5); CREATININE 2.36 mg/dL (0.60-1.30); MAGNESIUM 1.7 mg/dL (1.80-2.40); POTASSIUM 3.7 mmol/L (3.5-5.1); TOTAL PROTEIN, SERUM 4.8 g/dL (6.4-8.2)
[2020-02-14 07:39] LABS: BAND NEUTROPHILS % (MANUAL) 1 % (0-5); LYMPHOCYTES % (MANUAL) 2 % (22-44); METAMYELOCYTES % 1 % (0-0); MONOCYTES % (MANUAL) 4 % (2-9); SEGMENTED NEUTROPHILS % 92 % (40-70)
[2020-02-14 07:41] LABS: CORRECTED WHITE BLOOD COUNT 34.3 K/uL (4.5-11.0)
[2020-02-14 08:00] VITALS: BP 157/68
[2020-02-14] MEDS: AMINO ACIDS/PROTEIN HYDROLYS 30 ML TUBE PO SCH ×3 (08:10→17:23)
[2020-02-14] MEDS: MetroNIDAZOLE 500 MG/NACL 100 ML IV SCH ×2 (08:10→16:27)
[2020-02-14] MEDS: ASPIRIN 81 MG CHEWABLE TABLET PO SCH (08:11)
[2020-02-14] MEDS: ZINC SULFATE 220 MG CAPSULE PO SCH ×2 (08:11→20:21)
[2020-02-14] MEDS: PANTOPRAZOLE SODIUM 40 MG/VIAL IVP SCH (08:11)
[2020-02-14] MEDS: VITAMIN B COMP/VIT C/FOLIC ACID CAPSULE PO SCH (08:12)
[2020-02-14] MEDS: AMIODARONE HCL 200 MG TABLET PO SCH ×3 (08:12→20:20)
[2020-02-14] MEDS: CALCITRIOL 0.25 MCG CAPSULE NG SCH (08:12)
[2020-02-14] MEDS: DOCUSATE SODIUM 100 MG CAPSULE PO SCH ×2 (08:12→20:20)
[2020-02-14] MEDS: MORPHINE SULFATE 2 MG/ML SYRINGE IVP PRN (08:13)
[2020-02-14] MEDS: ASPIRIN 81 MG EC TABLET PO SCH (08:14)
[2020-02-14] MEDS ORDERED: MAGNESIUM SULFATE 0.5 GM in DEXTROSE 5%-WATER 50 ML IV ONE (08:30)
[2020-02-14] MEDS: METOPROLOL TARTRATE 25 MG TABLET PO SCH ×3 (09:00→20:21)
[2020-02-14 09:05] LABS: SOURCE, BLOOD GAS ARTERIAL
[2020-02-14 10:29] LABS: ABG A-A DIFF O2 229.8 mmHg (10-20.0); ABG BASE EXCESS -4.5 mmol/L (-2.0-3.0); ABG CARBOXYHEMOGLOBIN 0.6 % (0.0-1.5); ABG HCO3 20.9 mmol/L (22.0-26.0); ABG METHEMOGLOBIN 0.4 % (0.0-1.5); ABG OXYGEN CONTENT 10.4 mL/dL (15.0-23.0); ABG OXYHEMOGLOBIN 81.7 % (94.0-100.0); ABG PCO2 35 mmHg (35-45); ABG PH 7.387 (7.35-7.450); PO2, ARTERIAL BG 51.4 mmHg (71.0-79.0); TEMPERATURE, FAHRENHEIT, BG 98.6 FAHREN (96.0-98.6)
[2020-02-14 10:30] LABS: ABG OXYGEN SATURATION 82.5 % (95.0-98.0); O2 DEVICE,BLOOD GAS VENTILATOR (ROOM AIR); PEEP,BG 5 cm H2O; SITE, BLOOD GAS LFT RADIAL; VT, ABG 500 ml
[2020-02-14 11:53] LABS: GLUCOSE,POINT OF CARE 196 MG/DL (70-110)
[2020-02-14 12:00] VITALS: BP 140/60
[2020-02-14] MEDS ORDERED: FentaNYL CITRATE PF 500 MCG in DEXTROSE 5%-WATER 90 ML IV PRN (12:30)
[2020-02-14] MEDS: CefTRIAXone SODIUM 2 GM in DEXTROSE 5%-WATER 50 ML IV SCH (12:42)
[2020-02-14] MEDS: SULFAMETHOX/TRIMETH 25 ML in DEXTROSE 5%-WATER 250 ML IV SCH (13:52)
[2020-02-14] MEDS: CASPOFUNGIN ACETATE 50 MG in SODIUM CHLORIDE 0.9% 250 ML IV SCH (14:44)
[2020-02-14 16:00] VITALS: BP 104/58
[2020-02-14 17:59] LABS: GLUCOSE,POINT OF CARE 183 MG/DL (70-110)
[2020-02-14 17:59] LABS: GLUCOSE,POINT OF CARE 150 MG/DL (70-110)
[2020-02-14 20:00] VITALS: BP 117/45
[2020-02-15] VITALS (7 sets, daily range): BP systolic 106–133; BP diastolic 47–60
[2020-02-15] MEDS: DEXAMETHASONE SOD PHOS 4 MG/ML VIAL IVP SCH ×5 (00:40→23:50)
[2020-02-15] MEDS: MetroNIDAZOLE 500 MG/NACL 100 ML IV SCH ×4 (00:40→23:50)
[2020-02-15] MEDS: PROPOFOL 1000 MG/ISO-OSM 100 ML IV PRN ×3 (00:50→20:31)
[2020-02-15 04:07] LABS: GLUCOMETER DEV NAME(LOC) 4E.2; GLUCOSE,POINT OF CARE 161 MG/DL (70-110)
[2020-02-15] MEDS: INSULIN LISPRO 100 UNITS/ML SQ PRN (06:24)
[2020-02-15 06:53] LABS: HEMATOCRIT 25.8 % (41-53); HEMOGLOBIN 7.9 g/dL (13.5-17.5); MEAN CORPUSCULAR HGB CONC 30.7 G/dL (31.0-37.0); MEAN CORPUSCULAR VOLUME 101 fL (80-100); PLATELET COUNT (AUTO) 153 K/uL (150-450); RED BLOOD CELL COUNT(AUTO) 2.55 MIL/uL (4.50-5.90)
[2020-02-15 07:15] LABS: ALBUMIN 1.7 g/dL (3.4-5.0); BILIRUBIN,TOTAL 0.8 mg/dL (0.1-1.0); C-REACTIVE PROTEIN QUANT 0.97 mg/dL (0.00-0.30); CALCIUM, TOTAL 6.6 mg/dL (8.8-10.5); CREATININE 2.6 mg/dL (0.60-1.30); MAGNESIUM 1.8 mg/dL (1.80-2.40); PHOSPHORUS 5.5 mg/dL (2.5-4.9); POTASSIUM 3.8 mmol/L (3.5-5.1); TOTAL PROTEIN, SERUM 4.4 g/dL (6.4-8.2)
[2020-02-15] MEDS ORDERED: CALCIUM GLUCONATE 100 MG/ML 10 ML IVP ONE (08:30)
[2020-02-15 09:37] LABS: BAND NEUTROPHILS % (MANUAL) 10 % (0-5); MONOCYTES % (MANUAL) 6 % (2-9); SEGMENTED NEUTROPHILS % 84 % (40-70)
[2020-02-15] MEDS: PANTOPRAZOLE SODIUM 40 MG/VIAL IVP SCH (09:39)
[2020-02-15] MEDS: VITAMIN B COMP/VIT C/FOLIC ACID CAPSULE PO SCH (09:40)
[2020-02-15] MEDS: ZINC SULFATE 220 MG CAPSULE PO SCH ×2 (09:41→20:22)
[2020-02-15] MEDS: EPOETIN ALFA 10,000 UNITS/ML 2 ML VIAL SQ SCH (09:41)
[2020-02-15] MEDS: CALCITRIOL 0.25 MCG CAPSULE NG SCH (09:41)
[2020-02-15] MEDS: AMIODARONE HCL 200 MG TABLET PO SCH ×3 (09:42→20:22)
[2020-02-15] MEDS: ASPIRIN 81 MG CHEWABLE TABLET PO SCH (09:42)
[2020-02-15] MEDS: METOPROLOL TARTRATE 25 MG TABLET PO SCH ×3 (09:42→20:22)
[2020-02-15] MEDS: ASPIRIN 81 MG EC TABLET PO SCH (09:42)
[2020-02-15] MEDS: AMINO ACIDS/PROTEIN HYDROLYS 30 ML TUBE PO SCH ×3 (09:43→17:23)
[2020-02-15] MEDS: DOCUSATE SODIUM 100 MG CAPSULE PO SCH ×2 (09:43→20:22)
[2020-02-15] MEDS: CefTRIAXone SODIUM 2 GM in DEXTROSE 5%-WATER 50 ML IV SCH (12:00)
[2020-02-15 13:32] LABS: GLUCOSE,POINT OF CARE 151 MG/DL (70-110)
[2020-02-15 13:35] LABS: GLUCOSE,POINT OF CARE 114 MG/DL (70-110)
[2020-02-15] MEDS: SULFAMETHOX/TRIMETH 25 ML in DEXTROSE 5%-WATER 250 ML IV SCH (16:49)
[2020-02-15] MEDS ORDERED: HEPARIN SODIUM,PORCINE 1,000 UNITS/ML VIAL IVP ONE (16:54)
[2020-02-15] MEDS ORDERED: ALBUMIN HUMAN 25%-12.5GM/50ML IV BOTTLE IV ONE ×2 (16:54→18:15)
[2020-02-15] MEDS: CASPOFUNGIN ACETATE 50 MG in SODIUM CHLORIDE 0.9% 250 ML IV SCH (17:11)
[2020-02-15 20:39] LABS: GLUCOSE,POINT OF CARE 103 MG/DL (70-110)
[2020-02-16] VITALS: BP 101/49
[2020-02-16 02:00] VITALS: BP 113/48
[2020-02-16] MEDS: PROPOFOL 1000 MG/ISO-OSM 100 ML IV PRN ×3 (02:09→15:43)
[2020-02-16 04:00] VITALS: BP 115/48
[2020-02-16] MEDS: INSULIN LISPRO 100 UNITS/ML SQ PRN (05:23)
[2020-02-16] MEDS: DEXAMETHASONE SOD PHOS 4 MG/ML VIAL IVP SCH ×2 (05:23→12:15)
[2020-02-16 05:38] LABS: HEMATOCRIT 25.2 % (41-53); MEAN CORPUSCULAR HEMOGLOBIN 31.8 pg (26.0-34.0); MEAN CORPUSCULAR HGB CONC 31.7 G/dL (31.0-37.0); MEAN CORPUSCULAR VOLUME 100 fL (80-100); PLATELET COUNT (AUTO) 134 K/uL (150-450); RED BLOOD CELL COUNT(AUTO) 2.52 MIL/uL (4.50-5.90); RED CELL DISTRIBUTION WIDTH 27.6 % (11.5-14.5)
[2020-02-16 05:57] LABS: C-REACTIVE PROTEIN QUANT 1.55 mg/dL (0.00-0.30); CALCIUM, TOTAL 7.5 mg/dL (8.8-10.5); CREATININE 1.9 mg/dL (0.60-1.30); POTASSIUM 3.7 mmol/L (3.5-5.1)
[2020-02-16 06:00] VITALS: BP 127/49
[2020-02-16 06:54] LABS: GLUCOMETER DEV NAME(LOC) 4E.2; GLUCOSE,POINT OF CARE 153 MG/DL (70-110)
[2020-02-16 07:26] LABS: SEGMENTED NEUTROPHILS % 87 % (40-70)
[2020-02-16 07:27] LABS: BAND NEUTROPHILS % (MANUAL) 8 % (0-5); LYMPHOCYTES % (MANUAL) 1 % (22-44); MONOCYTES % (MANUAL) 4 % (2-9)
[2020-02-16 07:28] LABS: PLATELET MORPHOLOGY COMMENT LARGE PLTS PRESENT
[2020-02-16 07:29] LABS: WBC MORPHOLOGY TOXIC GRANULATION
[2020-02-16 08:00] VITALS: BP 120/48
[2020-02-16] MEDS: DOCUSATE SODIUM 100 MG CAPSULE PO SCH (08:46)
[2020-02-16] MEDS: METOPROLOL TARTRATE 25 MG TABLET PO SCH ×2 (08:46→16:00)
[2020-02-16] MEDS: MetroNIDAZOLE 500 MG/NACL 100 ML IV SCH ×2 (08:52→16:46)
[2020-02-16] MEDS: VITAMIN B COMP/VIT C/FOLIC ACID CAPSULE PO SCH (08:53)
[2020-02-16] MEDS: MORPHINE SULFATE 2 MG/ML SYRINGE IVP PRN ×3 (08:53→15:33)
[2020-02-16] MEDS: AMIODARONE HCL 200 MG TABLET PO SCH ×2 (08:53→16:46)
[2020-02-16] MEDS: ZINC SULFATE 220 MG CAPSULE PO SCH (08:54)
[2020-02-16] MEDS: AMINO ACIDS/PROTEIN HYDROLYS 30 ML TUBE PO SCH ×3 (08:54→16:47)
[2020-02-16] MEDS: ASPIRIN 81 MG EC TABLET PO SCH (08:54)
[2020-02-16] MEDS: ASPIRIN 81 MG CHEWABLE TABLET PO SCH (08:54)
[2020-02-16] MEDS: CALCITRIOL 0.25 MCG CAPSULE NG SCH (08:57)
[2020-02-16] MEDS: PANTOPRAZOLE SODIUM 40 MG/VIAL IVP SCH (08:57)
[2020-02-16 12:00] VITALS: BP 116/53
[2020-02-16] MEDS: CefTRIAXone SODIUM 2 GM in DEXTROSE 5%-WATER 50 ML IV SCH (12:14)
[2020-02-16 12:41] LABS: GLUCOSE,POINT OF CARE 109 MG/DL (70-110)
[2020-02-16] MEDS: SULFAMETHOX/TRIMETH 25 ML in DEXTROSE 5%-WATER 250 ML IV SCH (13:26)
[2020-02-16] MEDS ORDERED: SODIUM CHLORIDE 0.9% 1,000 ML ONE (15:21)
[2020-02-16] MEDS: CASPOFUNGIN ACETATE 50 MG in SODIUM CHLORIDE 0.9% 250 ML IV SCH (15:33)
[2020-02-16] MEDS ORDERED: MORPHINE SULFATE 100 MG/NS/PF 100 ML IV PRN (16:20)
[2020-02-16] MEDS ORDERED: DiphenhydrAMINE HCL 50 MG/ML VIAL IVP PRN (16:30)
[2020-02-16] MEDS ORDERED: ONDANSETRON HCL 4 MG/2 ML VIAL IVP PRN (16:30)
== END 2020-02-16 19:15 | disposition expired | DRG 870 ==
LOC: EMS 08:50 → UNDOADMIN 18:14 → ICU 18:14
PROVIDERS: ADMIT Hospitalist; ATTEND Hospitalist
PROC: 5A1955Z Respiratory Ventilation, Greater than 96 Consecutive Hours (ICD-10-PCS; principal; 2020-01-26)
PROC: 0BH17EZ Insertion of Endotracheal Airway into Trachea, Via Natural or Artificial Opening (ICD-10-PCS; 2020-01-26)
PROC: B54MZZA Ultrasonography of Right Upper Extremity Veins, Guidance (ICD-10-PCS; 2020-01-28)
PROC: 05HY33Z Insertion of Infusion Device into Upper Vein, Percutaneous Approach (ICD-10-PCS; 2020-01-28)
PROC: 30233L1 Transfusion of Nonautologous Fresh Plasma into Peripheral Vein, Percutaneous Approach (ICD-10-PCS; 2020-01-31)
DX: A41.9 Sepsis, unspecified organism (principal); U07.1 COVID-19; J96.01 Acute respiratory failure with hypoxia; I21.4 Non-ST elevation (NSTEMI) myocardial infarction; J12.89 Other viral pneumonia; R65.21 Severe sepsis with septic shock; N17.0 Acute kidney failure with tubular necrosis; G93.41 Metabolic encephalopathy; I63.512 Cerebral infarction due to unspecified occlusion or stenosis of left middle cerebral artery; E87.2 Acidosis; R47.01 Aphasia; D68.59 Other primary thrombophilia; N13.30 Unspecified hydronephrosis; D62 Acute posthemorrhagic anemia; E87.1 Hypo-osmolality and hyponatremia; Z99.11 Dependence on respirator [ventilator] status; N18.9 Chronic kidney disease, unspecified; N40.0 Benign prostatic hyperplasia without lower urinary tract symptoms; Z66 Do not resuscitate; E83.51 Hypocalcemia; E83.39 Other disorders of phosphorus metabolism; I12.9 Hypertensive chronic kidney disease with stage 1 through stage 4 chronic kidney disease, or unspecified chronic kidney disease; E83.42 Hypomagnesemia; E87.5 Hyperkalemia; E87.70 Fluid overload, unspecified; Z79.899 Other long term (current) drug therapy; Z78.9 Other specified health status
CPT/HCPCS: 36245; 36569; 36600; 70450; 70486; 70490; 70551; 71250; 74181; 76700; 76770; 76937; 82248; 82330; 82570; 82728; 82805; 83036; 83605; 83615; 83735; 84100; 84145; 84300; 84443; 84540; 85379; 85651; 86140; 86850; 86900; 86901; 86927; 87040; 87070; 87081; 87086; 87106; 87186; 87205; 87324; 87340; 87449; 87899; 93005; 93306; 93308; 93880; 94002; 94003; 94640; 99291; C9113; G0238; G0378; J0153; J0282; J0456; J0610; J0637; J0696; J0878; J0885; J1100; J1265; J1644; J1940; J1956; J2060; J2270; J2704; J3010; J3370; J3475; J3480; J3490; J7030; J7040; J7050; J7060; P9047; 36415-L1; 36415-TC; 71045-TC; 80061-TC; 80202-TC; U0003-CS